=== PATIENT | male | born 1980 | race Caucasian/White ===

== ENCOUNTER 2023-02-18 10:40 | Outpatient (OUT) | payer BC, SELFPAY ==
--- NOTE | 2023-02-18 10:49 | XR_ITS ---
The [address] [address] Patient Name: CARIN SO MRN: [id number] date: 1980 Sex: M Assigned Patient Location: [facility] Current Patient Location: [facility] Accession/Order Number: [id number] Exam Date: 02/18/2023 11:00 Report Date: 02/19/2023 00:12 At the request of: STEWART DAVILA Procedure: XR wrist RT min 3V EXAM: XR wrist RT min 3V HISTORY: Acute pain of right wrist M25.531 history of trauma COMPARISON: None. TECHNIQUE: 3 view study FINDINGS: Overall bony architecture is normal. Joint spaces are well-maintained. Soft tissue swelling is noted about the wrist. IMPRESSION: Soft tissue swelling. No acute bone or joint abnormality is otherwise. Electronically authenticated by: Soto ALANIZ Date: 02/19/2023 00:12
== END 2023-02-18 10:41 ==
LOC: RAD 10:43
PROVIDERS: PCP Internal Medicine; Visit Provider Internal Medicine
DX: M25.531 Pain in right wrist (principal)
CPT/HCPCS: 73110

== ENCOUNTER 2024-03-04 06:00 | Emergency (ER) | payer OTHER, BC, SELFPAY ==
[2024-03-04 06:05] VITALS: BP 138/95; PULSE 94; TEMP 36.8; O2SAT 97; BMI 39.7
--- NOTE | 2024-03-04 06:16 | XR_ITS ---
The [address] [address] Patient Name: CARIN SO MRN: [id number] date: 1980 Sex: M Assigned Patient Location: ER Current Patient Location: ER Accession/Order Number: [id number] Exam Date: 03/04/2024 06:32 Report Date: 03/04/2024 06:56 At the request of: LIAM MARKER Procedure: XR wrist RT 2V PROCEDURE: XR wrist RT 2V HISTORY: fall, wrist pain COMPARISON: XR wrist right 02/18/2023 FINDINGS: BONES:No fracture, acute abnormality, or significant arthropathy. SOFT TISSUES:No visible soft tissue swelling. EFFUSION:None visible. OTHER: Negative. XR/XR wrist RT 2V IMPRESSION: 1. No acute bone abnormality or significant degenerative joint disease. Electronically authenticated by: TAYLOR KIM Date: 03/04/2024 06:56
--- NOTE | 2024-03-04 06:16 | XR_ITS ---
The [address] [address] Patient Name: CARIN SO MRN: [id number] date: 1980 Sex: M Assigned Patient Location: ER Current Patient Location: ER Accession/Order Number: [id number] Exam Date: 03/04/2024 06:32 Report Date: 03/04/2024 06:54 At the request of: LIAM MARKER Procedure: XR knee RT 3V PROCEDURE: XR knee RT 3V HISTORY: fall, knee pain COMPARISON: None. FINDINGS: BONES:No fracture, acute abnormality, or significant arthropathy. SOFT TISSUES:No visible soft tissue swelling. EFFUSION:None visible. OTHER: Negative. XR/XR knee RT 3V IMPRESSION: 1. No acute bone abnormality or significant degenerative joint disease. Electronically authenticated by: TAYLOR KIM Date: 03/04/2024 06:54
--- NOTE | 2024-03-04 06:16 | XR_ITS ---
The [address] [address] Patient Name: CARIN SO MRN: [id number] date: 1980 Sex: M Assigned Patient Location: ER Current Patient Location: ED.MAIN Accession/Order Number: [id number] Exam Date: 03/04/2024 06:32 Report Date: 03/04/2024 06:53 At the request of: LIAM MARKER Procedure: XR shoulder RT min 2V PROCEDURE: XR shoulder RT min 2V HISTORY: fall, shoulder pain COMPARISON: None. FINDINGS: BONES:Degenerative osteophytes adjacent the acromioclavicular joint. Unremarkable glenohumeral joint. No fracture or dislocation. SOFT TISSUES:No visible soft tissue swelling. EFFUSION:None visible. OTHER: Negative. XR/XR shoulder RT min 2V IMPRESSION: 1. No acute bone abnormality. 2. Mild degenerative changes. Electronically authenticated by: TAYLOR KIM Date: 03/04/2024 06:53
--- NOTE | 2024-03-04 06:18 | ED_ITS ---
HPI HPI - Extremity Injury (Upper) General Chief Complaint: Extremity Injury, Upper Stated Complaint: FALL RT ARM/SHOULDER INJURY/BWC Time Seen by Provider: 03/04/24 06:07 Source: patient Mode of arrival: walk-in History of Present Illness HPI narrative: This 43-year-old male who is right-hand dominant presents for evaluation of right wrist, shoulder and knee pain. The patient states he was at the yard at work and tripped and fell on the right side of his body. He put his right hand down to break his fall and thinks that he jammed his shoulder. He also fell onto the right knee. He has some abrasions to the right knee but no bony tenderness. He denies striking his head. He has no neck or back pain. He does not know the date of his last tetanus shot. He denies that he became dizzy or syncopal prior to the fall. The injury occurred approximately 6 hours prior to arrival. He took some Tylenol and put a Band-Aid on his right knee prior to coming to the emergency department. At the time he is being seen he declines need for any pain medication. Related Data Allergies Allergy/AdvReac Type Severity Reaction Status Date / Time No Known Drug Allergies Allergy Verified 03/04/24 06:10 Opioid HPI Opioid Management Most Recent Pain and Opioid Data: No Data to Display Review of Systems ROS Status of ROS 10 or more systems reviewed and unremark able except as noted in history and below Exam Narrative Exam Narrative: Vital signs and Nursing Notes reviewed: Patient is afebrile with a normal pulse, blood pressure is mildly elevated at 138/95, he is not hypoxic with pulse ox of 97% on room air General: Awake, alert, oriented, overweight male resting comfortably on the stretcher, GCS 15, no respiratory distress HEENT: Normocephalic atraumatic, mucous membranes are moist and pink, eyes are clear, normal conjunctiva, vision is grossly intact Neck: Supple, no midline bony vertebral tenderness or step-off Chest: Lungs are clear to auscultation with good air entry, there is no wheezing rhonchi or rales appreciated no accessory muscle use, patient is speaking in complete sentences-no chest wall tenderness to palpation CVS: Regular rate and rhythm S1-S2, no murmurs rubs or gallops, pulses are brisk and equal bilaterally ABD: Soft, nondistended, nontender, no rebound guarding or rigidity, bowel sounds are normal, no pulsatile masses appreciated Extremities: There is mild tenderness to the right anterior shoulder with no bony deformity or abrasion noted. There is mild tenderness to the distal radius with no bony deformity ecchymosis or notable abnormality. [facility] strength is intact. Sensation is intact. Patient is able to cross the right hand to the left shoulder indicating he does not have a dislocation. Fingers are warm and sensate. Capillary refill is normal. Patient has mild tenderness over the patella where there are several superficial abrasions. Full range of motion is appreciated. Skin: Normal in appearance without rash,pallor, petechiae or purpura Neuro: No focal deficits Constitutional Vital Signs, click to edit/add: Last Vital Signs Temp 98.2 F 03/04/24 06:05 Pulse 94 H 03/04/24 06:05 Resp 16 03/04/24 06:05 BP 138/95 H 03/04/24 06:05 Pulse Ox 97 03/04/24 06:05 O2 Del Method Room Air 03/04/24 06:05 Course Vital Signs Vital signs: Vital Signs Temperature 98.2 F 03/04/24 06:05 Pulse Rate 94 H 03/04/24 06:05 Respiratory Rate 16 03/04/24 06:05 Blood Pressure 138/95 H 03/04/24 06:05 Pulse Oximetry 97 03/04/24 06:05 Oxygen Delivery Method Room Air 03/04/24 06:05 Temperature 98.2 F 03/04/24 06:05 Pulse Rate 94 H 03/04/24 06:05 Respiratory Rate 16 03/04/24 06:05 Blood Pressure 138/95 H 03/04/24 06:05 Pulse Oximetry 97 03/04/24 06:05 Oxygen Delivery Method Room Air 03/04/24 06:05 MDM - Extremity Injury (Upper) MDM Narrative Medical decision making narrative: This 43-year-old male presents for evaluation of a right shoulder, wrist and knee injury after falling in the yard at his job. The fall occurred approximately 6 hours prior to arrival. He describes it as a mechanical fall and denies any syncope or dizziness. He has no chest pain or shortness of breath. He has full range of motion of the shoulder with no bony deformity. There is mild tenderness at the distal radius. There is no snuffbox tenderness. [facility] strength is intact. He has mild abrasions over the right knee with some mild bony tenderness. He declined the need for any pain medication in the emergency department because he had taken Tylenol earlier in the evening. Tetanus was updated. X-ray of the right shoulder, right wrist and right knee was ordered. Discharge Plan Discharge Chief Complaint: Extremity Injury, Upper Clinical Impression: Fall from standing, Right shoulder strain, Sprain and strain of right wrist, Contusion of knee, right Print Language: Ukrainian Instructions: Sprain (ED), Contusion in Adults (ED), Wrist Sprain (ED), Cold Compress or Soak (ED) Referrals: STEWART DAVILA [Primary Care Provider] - 1 week
[2024-03-04] MEDS: ADACEL DIPH,PERTUSS(ACELL),TET VAC/PF 0.5 ML ADULT SYRINGE IM (06:47)
== END 2024-03-04 07:02 | disposition home or self-care (01) ==
PROVIDERS: Emergency Provider Emergency Medicine; PCP Internal Medicine
DX: S46.911A Strain of unspecified muscle, fascia and tendon at shoulder and upper arm level, right arm, initial encounter (principal); S63.501A Unspecified sprain of right wrist, initial encounter; S66.911A Strain of unspecified muscle, fascia and tendon at wrist and hand level, right hand, initial encounter; S80.01XA Contusion of right knee, initial encounter; W01.10XA Fall on same level from slipping, tripping and stumbling with subsequent striking against unspecified object, initial encounter; Z23 Encounter for immunization
CPT/HCPCS: 73030; 73100; 73562; 90471; 90715; 99284

== ENCOUNTER 2025-06-28 18:20 | Emergency (ER) | payer BC, SELFPAY ==
[2025-06-28 18:27] VITALS: BP 149/87; PULSE 76; TEMP 37.2; O2SAT 96; BMI 41.8
--- OUTSIDE RECORDS SUMMARY | 2025-06-28 18:28 | XMS_ITS | Encounter Summary ---
Author Organization [facility] Address [address] [place] [address] Care Team Providers Care Lip Cutter Name Role Phone Marty Mason MD Primary Care Provider [phone] Encounter Details DateTypeDepartmentCare Team (Latest Contact Info)Gyaagpbahqb08/27/2025Telephone [facility] [address] [place] [address] Kirsten Lance LPN [address] [place], [place] [id number] Social History Tobacco UseTypesPacks/DayYears UsedDateSmoking Tobacco: FormerCigarettesQuit: 09/02/2015Smokeless Tobacco: Never Comments:Last smoked : > 5-1 0 years Alcohol UseStandard Drinks/WeekCommentsYes2 (1 standard drink = 0.6 oz pure alcohol)Caffeine intake : teaPHQ-2AnswerDate RecordedPatient Health Questionnaire-2 Seydm843Sex and Gender InformationValueDate RecordedSex Assigned at BirthNot on fileLegal EgnMkje2311/14/2022 7:05 PM EDTGender Identity Not on fileSexual OrientationNot on filedocumented as of this encounter Miscellaneous Notes * Telephone Encounter - Kirsten Lance LPN - 06/28/2025 4:48 PM EDT Pt LM on stating he thinks he may have a kidney stone and was wanting any advice. Called pt backand advised we start by checking urine and if it is a stone there is usually blood in the urine andwe could order an ultrasound to see if there is a kidney stone, how big, where it is. Pt thinks he is just going to go to ER d/t the amount of pain he is in and that way they can just do all that at one time. documented in this encounter Plan of Treatment Not on file documented as of this encounter Visit Diagnoses Not on filedocumented in this encounter Care Teams Team MemberRelationshipSpecialtyStart DateEnd Date Marty Mason MD [address] [facility] [address] [place] [address] PCP - GeneralInternal Medicine01/14/23documented as of this encounter
--- OUTSIDE RECORDS SUMMARY | 2025-06-28 18:28 | XMS_ITS | Clinical Summary ---
Author Organization [facility] Address [address] [place] [address], [address] [place] [address] Care Team Providers Care Business Process Lead Name Role Phone Marty Mason MD Primary Care Provider [phone] Allergies No known active allergies Medications No known medications Family History RelationNameStatusCommentsFatherAliveMotherAlive Social History Tobacco UseTypesPacks/DayYears UsedDateSmoking Tobacco: FormerCigarettes0.310 Smokeless Tobacco: Never Tobacco Cessation:Counseling Given: Yes Alcohol UseStandard Drinks/WeekCommentsNever0 (1 standard drink = 0.6 oz pure alcohol)AUDIT-CAnswerDate RecordedFrequency of Alcohol ConsumptionNever 02/20/2019Average Number of DrinksNot on file02/20/2019Frequency of Binge DrinkingNot on file02/20/2019Sex and Gender InformationValueDate RecordedSex Assigned at BirthNot on fileLegal YliVdbj0111/17/2018 1:58 PM EDTGender Identity Not on fileSexual OrientationNot on file Last Filed Vital Signs Vital SignReadingTime TakenCommentsBlood Ixuccnwo093/7906 8:18 AM EDT Czgab6797 8:18 AM EDTTemperature--Respiratory Rate--Oxygen Saturation-- Inhaled Oxygen Concentration--Krumty349.7 kg (264 lb)02/20/2019 8:18 AM EDT Oichvk495.3 cm (5' 11 )02/20/2019 8:18 AM EDTBody Mass Index36.8206 8:18 AM EDT Plan of Treatment Not on file [place] [address] Care Teams Team MemberRelationshipSpecialtyStart DateEnd Date Marty Mason MD [address] [facility] [address] [place] [address] PCP - GeneralInternal Medicine02/20/19
--- OUTSIDE RECORDS SUMMARY | 2025-06-28 18:28 | XMS_ITS | Clinical Summary ---
Author Organization [facility] Address [id number] [address] [place] [address] Care Team Providers Care Breaker Boss Name Role Phone Marty Mason MD Primary Care Provider [phone] Allergies No known active allergies Medications MedicationSigDispense QuantityRefillsLast FilledStart DateEnd DateStatus famotidine (PEPCID) 20 mg tablet Take 1 tablet (20 mg total) by mouth in the morning and 1 tablet (20 mg total) before bedtime. 20 tablet 01/16/2024ctive ondansetron ODT (ZOFRAN ODT) 4 mg disintegrating tablet Dissolve 1 tablet (4 mg total) on tongue every 8 (eight) hours as needed for nausea for up to 10 doses. 10 tablet 01/16/2024ctive Active Problems ProblemNoted DateDiagnosed DateLumbar disc herniation with radiculopathy 11/03/2020pondylolisthesis at L5-S1 level11/03/2020hronic bilateral low back pain with right-sided axmplfny68/04/2021 Resolved Problems ProblemNoted DateDiagnosed DateResolved DateScrotal wall wkzcndf9302/09/2019 11/03/2020 Immunizations No known immunizations Family History Medical HistoryRelationNameCommentsDiabetesFatherHypertensionFatherCancer Maternal GrandfatherDiabetesMotherCancerPaternal GrandfatherRelationNameStatus CommentsFatherMaternal GrandfatherMotherPaternal Grandfather Social History Tobacco UseTypesPacks/DayYears UsedDateSmoking Tobacco: FormerCigarettesQuit: 2015Smokeless Tobacco: NeverAlcohol UseStandard Drinks/WeekCommentsYes0 (1 standard drink = 0.6 oz pure alcohol)rareAUDIT-CAnswerDate RecordedFrequency of Alcohol JswyvoyhbzlNeqjy86/05/2021verage Number of DrinksNot on file10/07/2020 Frequency of Binge DrinkingNot on file10/07/2020hildcareAnswerDate Recorded VlupsuazxKpjmgxr51/10/2019EmploymentAnswerDate RecordedEmploymentUnknown 02/09/2019Hunger ScreeningAnswerDate RecordedWithin the past 12 months we worried whether our food would run out before we got money to buy more.Never True01/16/2024Within the past 12 months the food we bought just didn't last and we didn't have money to get more.Never True4Purpose - LifeAnswerDate RecordedPurpose and direction in falrDptcimf92/04/2021ex and Gender Information ValueDate RecordedSex Assigned at BirthNot on fileLegal RkmPieh1804/07/2015 12:09 PM EDTGender IdentityNot on fileSexual OrientationNot on file Last Filed Vital Signs Vital SignReadingTime TakenCommentsBlood Uwisvrek722/69001/16/2024 5:00 PM EDT Bozvz9503/16/2024 4:45 PM KEWImmmtqqwxho95.5 ??C (99.5 ??F)01/16/2024 1:47 PM EDTRespiratory Xtgb953301/16/2024 4:45 PM EDTOxygen Msunhlgswp14%01/16/2024 5:00 PM EDTInhaled Oxygen Concentration--Otlnrl265.1 kg (300 lb)01/16/2024 1:47 PM MROJgnbkm322.3 cm (5' 11 )01/16/2024 1:47 PM EDTBody Mass Index41.8401/16/2024 1:47 PM EDT Plan of Treatment Health MaintenanceDue DateLast DoneCommentsDepression Gguyszyzf00/20/1995 DTaP,Tdap and Td Vaccines (1 - Tdap)2001Adult BMI Bxhfbhycp49/16/2025 01/16/2024Tobacco Wnfgqotem52Influenza Alphdur9405/03/2025 Goals GoalPatient Goal TypeAssociated ProblemsRecent ProgressPatient-Stated?Author Home Carola Meier LSW Note: Evaluation of progress towards goal: Safe dc transition from hospital to home with family support. Medical Devices ImplantedTypeAreaManufacturerDevice IdentifierShelf Expiration DateModel / Serial / LotCg Spnl [id number] [place] 6d - [id number] - [id number] Implanted:Qty: 1 on 11/02/2020 by Garrett Michaels, DO at [facility]/A: BackSTRYKER [id number] / [id number] / [id number]:10 x 32 x 10 mm 6 degree [id number] Bn Dmnr Fbr 15ml Biologic - [id number] - [id number] Implanted:Qty: 1 on 11/02/2020 by Garrett Michaels DO at [facility]/A: BackSTRYSEKOU [id number] / [id number] / NARod Spnl 40mm 5.5mm Cntr y - [id number] - [id number] Implanted:Qty: 1 on 11/02/2020 by Garrett Michaels, DO at [facility]/A: BackSTRYKER [id number] / [id number] / Juliano Spnl 45mm 5.5mm Cntr y - [id number] - [id number] Implanted:Qty: 1 on 11/02/2020 by Garrett Michaels DO at [facility]/A: BackSTRYKER [id number] / [id number] / Scr Set Spne Vrst Gry - [id number] - [id number] Implanted:Qty: 4 on 11/02/2020 by Garrett Michaels DO at [facility]/A: BackSTRYKER [id number] / [id number] / Scr Bn 55mm 6.5mm Pa Spne Vrst - [id number] - [id number] Implanted:Qty: 1 on 11/02/2020 by Garrett Michaels DO at [facility]/A: BackSTRYKER [id number] / [id number] / Scr Bn 40mm 6.5mm Pa Spne Vrst - [id number] - [id number] Implanted:Qty: 1 on 11/02/2020 by Garrett Michaels DO at [facility]/A: BackSTRYKER [id number] / [id number] / Scr Bn 45mm 6.5mm Pa Spne Vrst - [id number] - [id number] Implanted:Qty: 1 on 11/02/2020 by Garrett Michaels DO at [facility]/A: BackSTRYKER [id number] / [id number] / Scr Bn 45mm 7.5mm Pa Spne Vrst - [id number] - [id number] Implanted:Qty: 1 on 11/02/2020 by Garrett Michaels DO at [facility]/A: BackSTRYKER [id number] / [id number] / Insurance Advance Directives * Full Code (Latest Code Status on File) Date ActivatedDate InactivatedComments11/02/2020 4:37 PM11/05/2020 4:48 PM * Full Code Date ActivatedDate InactivatedComments02/09/2019 5:23 AM02/11/2019 8:29 PM Care Teams Team MemberRelationshipSpecialtyStart DateEnd Date Marty Mason MD [address] [facility] [address] [place] [id number] PCP - GeneralInternal Medicine02/09/19
--- OUTSIDE RECORDS SUMMARY | 2025-06-28 18:28 | XMS_ITS | Clinical Summary ---
Author Organization [facility] Healthcare Address [address] [place] [address] Care Team Providers Care Spine Specialist Name Role Phone Marty Mason MD Primary Care Provider [phone] Allergies No known active allergies Medications MedicationSigDispense QuantityRefillsLast FilledStart DateEnd DateStatus loratadine-pseudoephedrine ER (Claritin-D 24-hour) 10-240 MG 24 hr tablet Take 1 tablet by mouth Daily Do not crush, chew, or split.Active atorvastatin (Lipitor) 10 MG tablet Indications:Mixed hyperlipidemiaTake 1 tablet (10 mg) by mouth Daily 90 tablet 5Active Azelastine HCl 137 MCG/SPRAY solution Indications:Non-seasonal allergic rhinitis due to other allergic trigger Administer 1 spray into affected nostril(s) in the morning and 1 spray before bedtime. 30 mL 5Active fluticasone (Flonase) 50 MCG/ACT nasal spray Indications:Non-seasonal allergic rhinitis due to other allergic trigger Administer 1-2 sprays into each nostril Daily Shake gently. Before first use, prime pump. After use, clean tip and replace cap. 16 g 5Active Semaglutide,0.25 or 0.5MG/DOS, (Ozempic, 0.25 or 0.5 MG/DOSE,) 2 MG/3ML solution pen-injector Indications:Type 2 diabetes mellitus with other specified complication, without long-term current use of insulin (HCC)Inject 0.5 mg under the skin 1 (one) time per week 3 mL 5Active Active Problems ProblemNoted DateDiagnosed DateNon-seasonal allergic ypldxnmj30/15/2025 Xiytzoqmlmjrcvop20/06/2025Type 2 diabetes mellitus with other specified volagtxlgqlz84/06/2025Mixed jlyttslzfjcwmf41/06/2025Total bilirubin, elevated 02/05/2025Morbid dsbjply0912/28/2024MI 40.0-44.9, adult12/28/2024Former smoker 07/16/2023Lumbosacral radiculopathy at L501/10/2023Spondylolisthesis at L5-S1 level01/10/2023Obstructive sleep apnea fhlvjpfa47/11/2023Traumatic arthritis of right hip01/10/2023ost laminectomy qoyzjlgo48/11/2021hronic bilateral low back pain with right-sided tnuicyzv08/04/2021umbar disc herniation with vtbtivujirsvj40/04/2021 Resolved Problems ProblemNoted DateDiagnosed DateResolved DateElevated LDL cholesterol level /omplication of surgical etzkryyjf32 Neuralgia of right flankObesity (BMI 30-39.9)01/10/2023 12/28/20246246Hfbwywwtyfx22/11/202306/01/2025Unspecified mononeuropathy of right lower limbXanthoma of eomczq57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 Encounters DateTypeDepartmentCare NcmaMqabpgfnzod43/27/2025Telephone [facility] [address] [place] [address] Kirsten Lance LPN 06/07/2025bstract [facility] [address] [place] [address] Marty Mason MD 05/25/2025bstract [facility] [address] [place] [address] Marty Mason MD 05/20/2025bstract [facility] [address] [place] [address] Marty Mason MD 05/18/2025Telephone [facility] [address] [facility] [address] [place] [address] Kirsten Lance LPN 05/18/2025Results Follow-Up [facility] [address] [place] [address] Kavya Mesa PA CBC, Iron + transferrin + TIBC05/17/2025 9:30 AM EDTOffice Visit [facility] [address] [facility] [address] [place] [address] Kavya Mesa PA Type 2 diabetes mellitus with other specified complication, without long-term current use of insulin ([facility]) (Primary Dx); Non-seasonal allergic rhinitis due to other allergic trigger; Thrombocytopenia; Morbid obesity ([facility] BMI 40.0-44.9, adult ([facility]); Mixed nmwvhkgzssycxw02/15/2025bstract [facility] [address] [facility] [address] [place] [address] Marty Mason MD 05/17/2025amboo flowsheet [facility] [address] [place] [address] Kavya Mesa PA 05/17/2025Travelfrom Last 3 Months Family History Medical HistoryRelationNameCommentsDiabetesFatherHypertensionFatherHypertension MotherRelationNameStatusCommentsFatherAliveMotherAlive Social History Tobacco UseTypesPacks/DayYears UsedDateSmoking Tobacco: FormerCigarettesQuit: 09/02/2015Smokeless Tobacco: Never Tobacco Cessation:Counseling Given: Not Answered Comments:Last smoked : > 5-10 years Alcohol UseStandard Drinks/WeekCommentsYes2 (1 standard drink = 0.6 oz pure alcohol)Caffeine intake : teaPHQ-2AnswerDate RecordedPatient Health Questionnaire-2 Pssep004Sex and Gender InformationValueDate RecordedSex Assigned at BirthNot on fileLegal OiwThpj6411/14/2022 7:05 PM EDTGender Identity Not on fileSexual OrientationNot on file Last Filed Vital Signs Vital SignReadingTime TakenCommentsBlood Hzqjkipm172/7009 9:38 AM EDT Bieuz0659 9:38 AM WLBJmatbsztswe79.2 ??C (99 ??F)12/28/2024 10:37 AM EDT Respiratory Pdks534505/17/2025 9:38 AM EDTOxygen Gccdomykte16%05/17/2025 9:38 AM EDTInhaled Oxygen Concentration--Jqezuz121 kg (302 lb 12.8 oz)05/17/2025 9:38 AM UONSryheh724.3 cm (5' 11 )05/17/2025 9:38 AM EDTBody Mass Index42.23005/17/2025 9:38 AM EDT Plan of Treatment Health MaintenanceDue DateLast DoneCommentsMMR Vaccines (1 of 1 - Standard series)1983DTaP/Tdap/Td Vaccines (1 - Tdap)1989Diabetes: Retinopathy Xamhzphys59/20/1993Varicella Vaccines (1 of 2 - 13+ 2-dose series)1995 Hepatitis B Vaccines (1 of 3 - 19+ 3-dose series)2001Pneumococcal Vaccine: Pediatrics (0 to 5 Years) and At-Risk Patients (6 to 64 Years) (1 of 2 - PCV) 2001HPV Vaccines (1 - 3-dose SCDM series)2009COVID-19 Vaccine ( - season)2025Diabetes: Hemoglobin A1C5005/17/2025, 01/29/2025, 02/25/2023, Additional history existsDiabetes: Urine Protein Ojrsaokom77HIB VaccinesAged OutNo longer eligible based on patient's age to complete this topicHepatitis A VaccinesAged OutNo longer eligible based on patient's age to complete this topicIPV VaccinesAged OutNo longer eligible based on patient's age to complete this topicInfluenza Vaccine DiscontinuedMeningococcal B VaccineAged OutNo longer eligible based on patient's age to complete this topicMeningococcal VaccineAged OutNo longer eligible based on patient's age to complete this topicRotavirus VaccinesAged OutNo longer eligible based on patient's age to complete this topic Procedures Procedure NamePriorityDate/TimeAssociated DiagnosisCommentsIRON + TRANSFERRIN + FTPDZyfcmyo80/15/2025 9:58 AM EDT Thrombocytopenia NQNOujiohx91/15/2025 9:58 AM EDT Thrombocytopenia POCT GLYCATED HEMOGLOBIN, KONKYJkamvgv59/15/2025 9:42 AM EDT Type 2 diabetes mellitus with other specified complication, without long-term current use of insulin (HCC) MICROALBUMIN / CREATININE URINE UHLHPDpghpjn31/12/2025 2:06 PM EDT Type 2 diabetes mellitus with other specified complication, without long-term current use of insulin (HCC) from Last 3 Months or Most Recently Relevant to Health Maintenance Results * (ABNORMAL) Iron + transferrin + TIBC (05/17/2025 9:58 AM EDT)ComponentValueRef RangeTest MethodAnalysis TimePerformed AtPathologist SignatureIRON, KDQYT3854 - 180 mcg/dLQUESTIRON BINDING RDMRKOQU214975 - 425 mcg/dL (calc)QUEST% XIQKCZAWIK30(L)20 - 48 % (calc)ZERRGJOKHOGOP67604 - 380 ng/mLQUESTSpecimen (Source)Anatomical Location / LateralityCollection Method / VolumeCollection TimeReceived EfgdEgbte87/15/2025 9:58 AM EDT05/17/2025 9:59 AM EDT Narrative Resulting Agency Comment Performing Organization Information ?Site ID: QPT ?Name: [facility] ?Address: [address] [place] [address], [address] [place] [id number] ?Director: Philip Simpson MD Authorizing ProviderResult TypeResult StatusKavya Mesa PAL BLOOD ORDERABLESFinal ResultPerforming OrganizationAddressCity/State/ZIP CodePhone Number [facility]ST * (ABNORMAL) CBC (05/17/2025 9:58 AM EDT)ComponentValueRef RangeTest Method Analysis TimePerformed AtPathologist SignatureWHITE BLOOD CELL COUNT4.53.8 - 10.8 Thousand/uLQUESTRED BLOOD CELL COUNT4.734.20 - 5.80 Million/uLQUEST CQBLGZEDIX21.013.2 - 17.1 g/oDYHGXZZDFXYZVVVU21.038.5 - 50.0 %GPCLDVIU670.6(H) 80.0 - 100.0 aNDUOBCMAU66.8(H)27.0 - 33.0 luJAFVMKZIS22.732.0 - 36.0 g/dLQUEST Comment: For adults, a slight decrease in the calculated MCHC value (in the range of 30 to 32 g/dL) is most likely not clinically significant; however, it should be interpreted with caution in correlation with other red cell parameters and the patient's clinical condition. RDW13.411.0 - 15.0 %QUESTPLATELET QTWXO771(L)140 - 400 Thousand/yLMVMWEJGR38.2 7.5 - 12.5 fLQUESTSpecimen (Source)Anatomical Location / LateralityCollection Method / VolumeCollection TimeReceived TimeBloodVenous blood specimen / Unknown 05/17/2025 9:58 AM EDT05/17/2025 9:59 AM EDT Narrative Resulting Agency Comment Performing Organization Information ?Site ID: QPT ?Name: [facility] ?Address: [address] [place] [phone] ?Director: Philip Simpson MD Authorizing ProviderResult TypeResult StatusKavya Mesa PALAB BLOOD ORDERABLESFinal ResultPerforming OrganizationAddressCity/State/ZIP CodePhone Number [facility] * (ABNORMAL) POCT Glycated hemoglobin, total (05/17/2025 9:42 AM EDT)Component ValueRef RangeTest MethodAnalysis TimePerformed AtPathologist Signature Hemoglobin A1C6.0Specimen (Source)Anatomical Location / LateralityCollection Method / VolumeCollection TimeReceived TxymLywzj42/15/2025 9:42 AM EDT Narrative Authorizing ProviderResult TypeResult StatusKavya Mesa [facility]/EDIT ORDERABLESFinal Result * Microalbumin / creatinine, urine ratio (02/11/2025 2:06 PM EDT)ComponentValue Ref RangeTest MethodAnalysis TimePerformed AtPathologist SignatureCREATININE, RANDOM BCANM32477 - 320 mg/dLQUESTALBUMIN, URINE1.2See Note: mg/dLQUEST Comment: Reference Range: Reference Range Not established ALBUMIN/CREATININE RATIO, RANDOM URINE4<30 mg/g creatQUESTComment: The ADA defines abnormalities in albumin excretion as follows: Albuminuria Category ?Result (mg/g creatinine) Normal to Mildly increased <30 Moderately increased ? 30-299 Severely increased > OR = 300 The ADA recommends that at least two of three specimens collected within a 3-6 month period be abnormal before considering a patient to be within a diagnostic category. Specimen (Source)Anatomical Location / LateralityCollection Method / Volume Collection TimeReceived TimeUrineUrine specimen obtained by clean catch procedure / Bxdbtid0802/11/2025 2:06 PM EDT02/11/2025 2:07 PM EDT Narrative Resulting Agency Comment Performing Organization Information ?Site ID: QPT ?Name: [facility] ?Address: [address] [place] [address], [address] [place] [phone] ?Director: Philip Simpson MD Authorizing ProviderResult TypeResult StatusKavya Mesa PALAB URINE ORDERABLESFinal ResultPerforming OrganizationAddressCity/State/ZIP CodePhone Number [facility]ST from Last 3 Months or Most Recently Relevant to Health Maintenance Insurance Care Teams Team MemberRelationshipSpecialtyStart DateEnd Date Marty Mason MD [address] [address] PCP - GeneralInternal Medicine01/14/23
[2025-06-28 18:45] LABS: Glucose Urine UA NEGATIVE (NEGATIVE)
[2025-06-28 18:54] LABS: Cast Seen? NONE SEEN #/LPF (NONE SEEN); Crystals Seen? None Seen #/HPF (None Seen); Urine Culture Indicated NO
--- NOTE | 2025-06-28 19:19 | CT_ITS ---
The [address] [address] Patient Name: CARIN SO MRN: [id number] date: 1980 Sex: M Assigned Patient Location: ER Current Patient Location: ER Accession/Order Number: [id number] Exam Date: 06/28/2025 19:30 Report Date: 06/28/2025 20:04 At the request of: ELEAZAR MENCHACA DO Procedure: CT abdomen pelvis wo con CT ABDOMEN AND PELVIS WITHOUT INTRAVENOUS CONTRAST: CLINICAL HISTORY: r/o kidney stone COMPARISON: 02/08/2019 TECHNIQUE: Spiral images were obtained through the abdomen and pelvis without intravenous contrast. This CT exam was performed using one or more following dose reduction techniques: Automated exposure control, adjustment of the mA and/or kV according to patient size, or use of iterative reconstruction technique. FINDINGS: Small hiatal hernia. Hypoventilatory changes. Fatty infiltration of the liver. Gallbladder, spleen, adrenals, kidneys, and pancreas are unremarkable. There are punctate bilateral calculi without hydronephrosis or definite ureterolithiasis. There is mild retroperitoneal fat stranding identified along the duodenal sweep. This could raise possibility for duodenitis. Pancreatitis could have a similar appearance. Otherwise no evidence of bowel obstruction. Mild retained stool throughout the colon. Colonic diverticulosis. Appendix is normal. Bladder wall thickening prostate unremarkable. No free air or free fluid. Postsurgical changes lumbosacral junction with discectomy and posterior dislocation identified. CT/CT abdomen pelvis wo con IMPRESSION: Mild haziness along the duodenal sweep noted, this could raise possibility for pancreatitis versus duodenitis. Punctate nephrolithiasis. Negative hydronephrosis or ureterolithiasis.. Impression dictated by: Phoenix Mann M.D. 06/28/2025 8:04 PM Dictation Location: [place] [address] Electronically authenticated by: [id number] Y Date: 06/28/2025 20:04
[2025-06-28 19:29] LABS: Hematocrit 46.3 % (42.0-54.0); Hemoglobin 16.2 g/dL (14.0-18.0); Immature Granulocytes Abs Auto 0.02 10^3/uL (0.00-0.03); Immature Granulocytes Pct Auto 0.3 % (0.0-0.5); Lymphocytes Absolute Auto 2.1 10^3/uL (1.2-3.8); Mean Corpuscular HGB Conc 35.0 g/dL (29.9-35.2); Mean Corpuscular Hemoglobin 34.1 pg (25.9-34.0); Mean Corpuscular Volume 97.5 fL (80.0-94.0); Platelet Count 131 10^3/uL (150-450); Red Blood Count 4.75 10^6/uL (4.70-6.10); White Blood Count 7.9 10^3/uL (4.0-11.0)
[2025-06-28] MEDS: KETOROLAC TROMETHAMINE 30 MG/ML VIAL IVP (19:31)
[2025-06-28] MEDS: 0.9 % SODIUM CHLORIDE 1,000 ML 1000 ML IV (19:32)
[2025-06-28 19:38] LABS: Alanine Aminotransferase 39 U/L (16-63); Albumin Globulin Ratio 0.7; Albumin Level 3.5 g/dL (3.4-5.0); Alkaline Phosphatase 109 U/L (46-116); Anion Gap 12.8; Aspartate Amino Transferase 35 U/L (15-37); Blood Urea Nitrogen 5.0 mg/dL (7.0-18.0); Calcium 8.7 mg/dL (8.5-10.1); Carbon Dioxide 28.8 mmol/L (21.0-32.0); Chloride 98 mmol/L (98-107); Estimated GFR (African America >60 (>=60 mL/min/1.73m^2); Estimated GFR (Non-African Ame >60 (>=60 mL/min/1.73m^2); Globulin 4.8 g/dL; Glucose 118 mg/dL (74-106); Potassium 3.6 mmol/L (3.5-5.1); Sodium 136 mmol/L (136-145); Total Protein 8.3 g/dL (6.4-8.2)
[2025-06-28 19:40] LABS: Lipase 32.0 U/L (16.0-77.0)
[2025-06-28] MEDS: MORPHINE SULFATE 4 MG/ML VIAL IV (19:40)
--- NOTE | 2025-06-28 19:59 | PC.NURSE ---
Pt states the is tolerable at this time.
--- NOTE | 2025-06-29 00:51 | ED_ITS ---
HPI HPI - General Adult General Chief complaint: Urogenital-Male Stated complaint: POSS KIDNEY STONE Time Seen by Provider: 06/28/25 18:35 Source: patient Mode of arrival: walk-in History of Present Illness HPI narrative: Patient is a 44-year-old male presenting to the emergency department for evaluation of abdominal pain. Patient states that he has had 3 days of bilateral lower abdominal pain that radiates to his back. He states he has a history of kidney stones, and is concerned that he may have another 1. He denies any nausea or vomiting. No constipation or diarrhea. No fevers or chills. No chest pain or shortness of breath. No history of recent abdominal surgeries. Related Data Previous Rx's ?Medication ?Instructions ?Recorded omeprazole 20 mg capsule,delayed 20 mg PO DAILY 4 week s #28 caps 06/28/25 release Allergies Allergy/AdvReac Type Severity Reaction Status Date / Time No Known Drug Allergies Allergy Verified 06/28/25 18:26 Opioid HPI Opioid Management Most Recent Opioid Data: Last Pain Scale 8 06/28/25, 19:40 Last MAR Pain Assessment 06/28/25, 19:40 Review of Systems ROS Status of ROS 10 or more systems reviewed and unremark able except as noted in history and below PFSH PFSH Social History Little interest or pleasure in doing things: not at all Feeling down, depressed, or hopeless: not at all Exam Narrative Exam Narrative: CONSTITUTIONAL: Well-appearing, answering questions and following commands appropriately SKIN: Was warm and dry. EYES: Sclerae white. EARS, NOSE, THROAT: Moist oral mucosa. RESPIRATORY: Clear to auscultation bilaterally, no wheezes, crackles, or stridor, no use of accessory muscles CARDIOVASCULAR: Normal rate and regular rhythm. There is no S3, S4, murmur, rub. GASTROINTESTINAL: Abdomen is mildly tender to palpation in the lower abdomen. No rebound tenderness or guarding. MUSCULOSKELETAL: No peripheral edema. NEUROLOGIC: Patient is awake and alert. Facies were symmetrical. Constitutional Vital Signs, click to edit/add: Last Vital Signs Temp 99.0 F 06/28/25 18: Pulse 76 06/28/25 18:27 Resp 18 06/28/25 18:27 BP 149/87 H 06/28/25 18:27 Pulse Ox 96 06/28/25 18:27 O2 Del Method Room Air 06/28/25 18:27 Course Vital Signs Vital signs: Vital Signs Temperature 99.0 F 06/28/25 18: Pulse Rate 76 06/28/25 18: Respiratory Rate 18 06/28/25 18: Blood Pressure 149/87 H 06/28/25 18:27 Pulse Oximetry 96 06/28/25 18:27 Oxygen Delivery Method Room Air 06/28/25 18:27 Temperature 99.0 F 06/28/25 18: Pulse Rate 76 06/28/25 18: Respiratory Rate 18 06/28/25 18: Blood Pressure 149/87 H 06/28/25 18: Pulse Oximetry 96 06/28/25 18: Oxygen Delivery Method Room Air 06/28/25 18:27 Medical Decision Making MDM Narrative Medical decision making narrative: Patient is a 44-year-old male presenting to the emergency department for 3-day history of lower abdominal pain. Vital signs arrival are within normal limits. He is afebrile and hemodynamically stable. Examination as noted above. Differential diagnosis includes nephrolithiasis, diverticulitis, UTI, constipation, or gastritis. Patient's exam is not consistent with surgical etiologies of abdominal pain such as appendicitis, cholecystitis, or perforated viscus. IV was established laboratory studies were obtained. CT abdomen/pelvis was ordered. Issues symptomatic with IV ketorolac and 1 L bolus normal saline. Laboratory studies were unremarkable. No significant electrolyte or metabolic derangement. No evidence of acute kidney injury. No anemia, leukocytosis, or thrombocytopenia. No transaminitis or hyperbilirubinemia. Lipase nonelevated. Urinalysis was positive for microscopic hematuria without evidence of acute infection. CT abdomen/pelvis independently reviewed and interpreted by myself and radiology demonstrated mild haziness along duodenal sweep, could raise possibility for pancreatitis versus duodenitis. Punctate nephrolithiasis. Negative hydronephrosis or ureterolithiasis. Though the CT read was concerning for possible pancreatitis, he is not vomiting and is tolerating p.o. His lipase at level is not elevated. His presentation is more likely consistent with duodenitis. He was given a prescription for omeprazole and instructed follow-up with his PCP for further care. Return precautions were given including any new or concerning symptoms. Patient understands and agrees to plan. FINAL IMPRESSION: #Acute abdominal pain, possible duodenitis DISPOSITION: Discharged home CONDITION: Good Medical Records Medical records reviewed: Yes I reviewed the patient's medical records Lab Data Lab results reviewed: Yes I reviewed the patient's lab results Labs: Lab Results 06/28/25 06/28/25 Range/Units 18:35 19:18 WBC 7.9 (4.0-11.0) 10^3/uL RBC 4.75 (4.70-6.10) 10^6/uL Hgb 16.2 (14.0-18.0) g/dL Hct 46.3 (42.0-54.0) % MCV 97.5 H (80.0-94.0) fL MCH 34.1 H (25.9-34.0) pg MCHC 35.0 (29.9-35.2) g/dL RDW 12.7 (11.0-15.0) % Plt Count 131 L (150-450) 10^3/uL MPV 10.5 (9.5-13.5) fL Neut % (Auto) 57.9 (43.0-75.0) % Lymph % (Auto) 27.1 (20.5-60.0) % Caroline % (Auto) 12.7 H (1.7-12.0) % Eos % (Auto) 1.5 (0.9-7.0) % Baso % (Auto) 0.5 (0.2-2.0) % Neut # (Auto) 4.6 (1.4-6.5) 10^3/uL Lymph # (Auto) 2.1 (1.2-3.8) 10^3/uL Caroline # (Auto) 1.0 H (0.3-0.8) 10^3/uL Eos # (Auto) 0.1 (0.0-0.7) 10^3/uL Baso # (Auto) 0.0 (0.0-0.1) 10^3/uL Abs Immat Gran (auto) 0.02 (0.00-0.03) 10^3/uL Imm/Tot Granulo (auto) 0.3 (0.0-0.5) % Sodium 136 (136-145) mmol/L Potassium 3.6 (3.5-5.1) mmol/L Chloride 98 (98-107) mmol/L Carbon Dioxide 28.8 (21.0-32.0) mmol/L Anion Gap 12.8 BUN 5.0 L (7.0-18.0) mg/dL Creatinine 0.79 (0.70-1.30) mg/dL Est GFR ( Amer) >60 (>=60 mL/min/1.73m^2) Est GFR (Non-Af Amer) >60 (>=60 mL/min/1.73m^2) BUN/Creatinine Ratio 6.3 Glucose 118 H (74-106) mg/dL Calcium 8.7 (8.5-10.1) mg/dL Total Bilirubin 1.4 H (0.2-1.0) mg/dL AST 35 (15-37) U/L ALT 39 (16-63) U/L Alkaline Phosphatase 109 (46-116) U/L Total Protein 8.3 H (6.4-8.2) g/dL Albumin 3.5 (3.4-5.0) g/dL Globulin 4.8 g/dL Albumin/Globulin Ratio 0.7 Lipase 32.0 (16.0-77.0) U/L Urine Color Yellow (YELLOW) Urine Clarity Clear (CLEAR) Urine pH 7.0 (5.0-9.0) Ur Specific [place] 1.015 (1.005-1.025) Urine Protein Negative (NEG/TRACE) mg/dL Urine Glucose (UA) Negative (NEGATIVE) mg/dL Urine Ketones Negative (NEGATIVE) mg/dL Urine Occult Blood Small A (NEGATIVE) Urine Nitrite Negative (NEGATIVE) Urine Bilirubin Negative (NEGATIVE) Urine Urobilinogen 2.0 A (0.2-1.0) EU/dL Ur Leukocyte Esterase Negative (NEGATIVE) Urine RBC 2-5 A (0-2) #/HPF Urine WBC 0-2 A (NONE SEEN) #/HPF Ur Squamous Epith Cells Rare (NONE/RARE) #/LPF Urine Crystals None seen (None Seen) #/HPF Urine Bacteria None seen (NONE SEEN) #/HPF Urine Casts None seen (NONE SEEN) #/LPF Urine Mucus None seen (NONE SEEN) Ur Culture Indicated? No Imaging Data CT scan - abdomen: Attestation: I personally reviewed and interpreted this imaging study as follows: Radiologist's impression: ITS Impressions Abdomen/Pelvis CT 06/28/25 19:19 IMPRESSION: Mild haziness along the duodenal sweep noted, this could raise possibility for pancreatitis versus duodenitis. Punctate nephrolithiasis. Negative hydronephrosis or ureterolithiasis.. Impression dictated by: Phoenix Mann M.D. 06/28/2025 8:04 PM Dictation Location: [facility] Electronically authenticated by: [id number] Y Date: 06/28/2025 20:04 Discharge Plan Discharge Chief Complaint: Urogenital-Male Clinical Impression: Abdominal pain Patient Disposition: Home, Self-Care Time of Disposition Decision: 20:14 Condition: Good Mode of Transportation: Private Vehicle Prescriptions / Home Meds: New omeprazole 20 mg capsule,delayed release(DR/EC) 20 mg PO DAILY 28 Days Qty: 28 0RF Print Language: Luxembourgish Instructions: Abdominal Pain (ED) Referrals: STEWART DAVILA [Primary Care Provider, Internal Medicine] - 1 week Discharge Date/Time: 06/28/25 20:31
== END 2025-06-28 20:31 | disposition home or self-care (01) ==
PROVIDERS: Emergency Medicine; Emergency Provider Student in an Organized Health Care Education/Training Program; PCP Internal Medicine
DX: R10.30 Lower abdominal pain, unspecified (principal); Z87.442 Personal history of urinary calculi
CPT/HCPCS: 36415; 74176; 80053; 81001; 83690; 85025; 96374; 96375; 99284; 99285; J1885; J2270

== ENCOUNTER 2025-07-01 08:45 | Emergency (ER) | payer BC, SELFPAY ==
[2025-07-01 09:02] VITALS: BP 130/70; PULSE 71; TEMP 37.1; O2SAT 94; BMI 41.8
--- NOTE | 2025-07-01 09:08 | ED.ABDPAIN1 ---
HPI - Abdominal Pain General Chief Complaint: Abdominal Pain Stated Complaint: LOWER ABDOMINAL & BACK Time Seen by Provider: 07/01/25 09:03 Source: patient Mode of arrival: walk-in Limitations: no limitations History of Present Illness HPI narrative: cc - abdominal pain Pt was evaluated two days ago for the same complaints, same location. Blood testing and CT did not identify the exact cause - suspicion for duodenitis vs early/mild pancreatitis - he was discharged home with prescription for omeprazole. He now returns with the same complaints. Related Data Previous Rx's ?Medication ?Instructions ?Recorded omeprazole 20 mg capsule,delayed 20 mg PO DAILY 4 weeks #28 caps 06/28/25 release dicyclomine 20 mg tablet 20 mg PO BID PRN abdominal pain 07/01/25 #30 tabs hyoscyamine sulfate 0.125 mg 0.125 mg PO Q6H PRN abdominal pain 07/01/25 sublingual tablet (Levsin/SL) #20 tabs Allergies Allergy/AdvReac Type Severity Reaction Status Date / Time No Known Drug Allergies Allergy Verified 07/01/25 09:01 [facility] PFS Social History Little interest or pleasure in doing things: not at all Feeling down, depressed, or hopeless: not at all Exam Narrative Exam Narrative: Nurses notes and vital signs reviewed and patient is not hypoxic. afebrile General: Well-appearing and in no apparent distress. Skin: Warm, dry, no pallor noted. No rash. Head: Normocephalic, atraumatic. Eye: Pupils are equal, round and EOMI. No scleral icterus. Ears, Nose, Mouth, and Throat: Oral mucosa is lightly dry. Cardiovascular: Regular Rate and Rhythm without murmur, gallop or rub. Respiratory: No accessory muscle use or respiratory distress. Lungs are clear to auscultation, no wheezing, rales or rhonchi Back: No CVA tenderness Musculoskeletal: normal ROM GI: Abdomen is soft, non-distended. Normal bowel sounds. No masses appreciated. Diffuse lower abdominal tenderness to palpation. No rebound, guarding, or rigidity noted. Neurological: A&O x4. No cranial nerve dysfunction observed. No truncal ataxia. Moves all extremities. Sensation intact. Psychiatric: Cooperative and interactive. Normal mood and affect. Constitutional Vital Signs, click to edit/add: Last Vital Signs Temp 98.8 F 07/01/25 09:02 Pulse 71 07/01/25 09:02 Resp 18 07/01/25 09:02 BP 130/70 07/01/25 09:02 Pulse Ox 94 L 07/01/25 09:02 O2 Del Method Room Air 07/01/25 09:02 Course Vital Signs Vital signs: Vital Signs Temperature 98.8 F 07/01/25 09:02 Pulse Rate 71 07/01/25 09:02 Respiratory Rate 18 07/01/25 09:02 Blood Pressure 130/70 07/01/25 09:02 Pulse Oximetry 94 L 07/01/25 09:02 Oxygen Delivery Method Room Air 07/01/25 09:02 Temperature 98.8 F 07/01/25 09:02 Pulse Rate 71 07/01/25 09:02 Respiratory Rate 18 07/01/25 09:02 Blood Pressure 130/70 07/01/25 09:02 Pulse Oximetry 94 L 07/01/25 09:02 Oxygen Delivery Method Room Air 07/01/25 09:02 MDM - Abdominal Pain MDM Narrative Medical decision making narrative: Patient returns for reevaluation of the same symptoms he had in the ED visit 2 days ago. He has been experiencing abdominal pain since June 25. Peripheral IV established blood drawn and sent for testing. Patient was ordered to receive a liter of normal saline IV fluid. The only notable finding on his blood testing was elevated lactate. Additional normal saline IV fluid was ordered to be received. CT of the abdomen pelvis was obtained -this time with IV contrast -in the hopes of better visualizing the etiology of the patient's symptoms. Unfortunately, nothing could be found to account for the patient's lower abdominal pain. The pancreatic changes were once again noted but the patient's lipase is normal. His pain is not localized to the epigastric or upper abdominal areas. I talked to the patient about his results -he declined offer for Dilaudid so we gave him IV ketorolac. He has an appointment with his primary care physician for July 05, 2025. 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 Medical Records Attestation: I reviewed the patient's medical records. Lab Data Attestation: I reviewed the patient's lab results. Labs: Lab Results 07/01/25 07/01/25 Range/Units 09:22 10:11 WBC 5.8 (4.0-11.0) 10^3/uL RBC 4.45 L (4.70-6.10) 10^6/uL Hgb 15.3 (14.0-18.0) g/dL Hct 42.9 (42.0-54.0) % MCV 96.4 H (80.0-94.0) fL MCH 34.4 H (25.9-34.0) pg MCHC 35.7 H (29.9-35.2) g/dL RDW 12.3 (11.0-15.0) % Plt Count 124 L (150-450) 10^3/uL MPV 10.4 (9.5-13.5) fL Neut % (Auto) 64.9 (43.0-75.0) % Lymph % (Auto) 20.3 L (20.5-60.0) % Gladwin % (Auto) 13.0 H (1.7-12.0) % Eos % (Auto) 1.2 (0.9-7.0) % Baso % (Auto) 0.3 (0.2-2.0) % Neut # (Auto) 3.7 (1.4-6.5) 10^3/uL Lymph # (Auto) 1.2 (1.2-3.8) 10^3/uL Gladwin # (Auto) 0.8 (0.3-0.8) 10^3/uL Eos # (Auto) 0.1 (0.0-0.7) 10^3/uL Baso # (Auto) 0.0 (0.0-0.1) 10^3/uL Abs Immat Gran (auto) 0.02 (0.00-0.03) 10^3/uL Imm/Tot Granulo (auto) 0.3 (0.0-0.5) % Sodium 136 (136-145) mmol/L Potassium 3.8 (3.5-5.1) mmol/L Chloride 101 (98-107) mmol/L Carbon Dioxide 25.6 (21.0-32.0) mmol/L Anion Gap 13.2 BUN 5.0 L (7.0-18.0) mg/dL Creatinine 0.85 (0.70-1.30) mg/dL Est GFR ( Amer) >60 (>=60 mL/min/1.73m^2) Est GFR (Non-Af Amer) >60 (>=60 mL/min/1.73m^2) BUN/Creatinine Ratio 5.9 Glucose 175 H (74-106) mg/dL Lactate 2.2 H* (0.4-2.0) mmol/L Calcium 9.0 (8.5-10.1) mg/dL Total Bilirubin 1.4 H (0.2-1.0) mg/dL Direct Bilirubin 0.4 H (0.0-0.2) mg/dL AST 30 (15-37) U/L ALT 35 (16-63) U/L Alkaline Phosphatase 92 (46-116) U/L Total Protein 7.8 (6.4-8.2) g/dL Albumin 3.2 L (3.4-5.0) g/dL Globulin 4.6 g/dL Albumin/Globulin Ratio 0.7 Lipase 30.0 (16.0-77.0) U/L Urine Color Lt. yellow (YELLOW) Urine Clarity Clear (CLEAR) Urine pH 7.0 (5.0-9.0) Ur Specific [place] <=1.005 A (1.005-1.025) Urine Protein Negative (NEG/TRACE) mg/dL Urine Glucose (UA) Negative (NEGATIVE) mg/dL Urine Ketones Negative (NEGATIVE) mg/dL Urine Occult Blood Trace-i (NEGATIVE) Urine Nitrite Negative (NEGATIVE) Urine Bilirubin Negative (NEGATIVE) Urine Urobilinogen 1.0 (0.2-1.0) EU/dL Ur Leukocyte Esterase Negative (NEGATIVE) Urine RBC 0-2 (0-2) #/HPF Urine WBC 0-2 A (NONE SEEN) #/HPF Ur Squamous Epith Cells Rare (NONE/RARE) #/LPF Urine Crystals None seen (None Seen) #/HPF Urine Bacteria Trace A (NONE SEEN) #/HPF Urine Casts None seen (NONE SEEN) #/LPF Urine Mucus None seen (NONE SEEN) Ur Culture Indicated? No Imaging Data CT scan - abdomen: Attestation: I have reviewed the pertinent imaging results. Radiologist's impression: ITS Impressions Abdomen/Pelvis CT 07/01/25 11:47 IMPRESSION: FATTY LIVER. SPLENOMEGALY AND VARICES. CONTINUED INFLAMMATORY CHANGE AROUND THE PROXIMAL PANCREAS AND DUODENAL SWEEP. CORRELATION IS SUGGESTED. LEFT NEPHROLITHIASIS. NO BOWEL OR URINARY TRACT OBSTRUCTION. CONTINUED URINARY BLADDER WALL THICKENING. CORRELATION IS SUGGESTED TO EXCLUDE THE POSSIBILITY OF CYSTITIS. Impression dictated by: Kavya Rodas M.D. 07/01/2025 12:12 PM Dictation Location: [place] [address] Electronically authenticated by: [id number] Y Date: 07/01/2025 12:12 Discharge Plan Discharge Chief Complaint: Abdominal Pain Clinical Impression: Abdominal pain Patient Disposition: Home, Self-Care Time of Disposition Decision: 12:38 Prescriptions / Home Meds: New hyoscyamine sulfate [Levsin/SL] 0.125 mg tablet, sublingual 0.125 mg PO Q6H PRN (Reason: abdominal pain) Qty: 20 0RF dicyclomine 20 mg tablet 20 mg PO BID PRN (Reason: abdominal pain) Qty: 30 0RF No Action omeprazole 20 mg capsule,delayed release(DR/EC) 20 mg PO DAILY 28 Days Qty: 28 0RF Print Language: Austrian Instructions: Abdominal Pain (ED) Referrals: LEXUS BAZAN [Physician, Gastroenterology] - 1 week STEWART DAVILA [Primary Care Provider, Internal Medicine] - 1 week
[2025-07-01] MEDS: 0.9 % SODIUM CHLORIDE 1,000 ML 999 ML IV (09:23)
[2025-07-01] MEDS: PANTOPRAZOLE SODIUM 40 MG VIAL IV (09:23)
[2025-07-01 09:37] LABS: Hematocrit 42.9 % (42.0-54.0); Hemoglobin 15.3 g/dL (14.0-18.0); Immature Granulocytes Abs Auto 0.02 10^3/uL (0.00-0.03); Immature Granulocytes Pct Auto 0.3 % (0.0-0.5); Lymphocytes Absolute Auto 1.2 10^3/uL (1.2-3.8); Mean Corpuscular HGB Conc 35.7 g/dL (29.9-35.2); Mean Corpuscular Hemoglobin 34.4 pg (25.9-34.0); Mean Corpuscular Volume 96.4 fL (80.0-94.0); Platelet Count 124 10^3/uL (150-450); Red Blood Count 4.45 10^6/uL (4.70-6.10); White Blood Count 5.8 10^3/uL (4.0-11.0)
[2025-07-01 09:44] LABS: Alanine Aminotransferase 35 U/L (16-63); Albumin Globulin Ratio 0.7; Albumin Level 3.2 g/dL (3.4-5.0); Alkaline Phosphatase 92 U/L (46-116); Anion Gap 13.2; Aspartate Amino Transferase 30 U/L (15-37); Blood Urea Nitrogen 5.0 mg/dL (7.0-18.0); Calcium 9.0 mg/dL (8.5-10.1); Carbon Dioxide 25.6 mmol/L (21.0-32.0); Chloride 101 mmol/L (98-107); Estimated GFR (African America >60 (>=60 mL/min/1.73m^2); Estimated GFR (Non-African Ame >60 (>=60 mL/min/1.73m^2); Globulin 4.6 g/dL; Glucose 175 mg/dL (74-106); Lipase 30.0 U/L (16.0-77.0); Potassium 3.8 mmol/L (3.5-5.1); Sodium 136 mmol/L (136-145); Total Protein 7.8 g/dL (6.4-8.2)
[2025-07-01 09:48] LABS: Lactate/Lactic Acid 2.2 mmol/L (0.4-2.0)
[2025-07-01] MEDS: KETOROLAC TROMETHAMINE 30 MG/ML VIAL IVP (10:42)
[2025-07-01 10:45] LABS: Glucose Urine UA NEGATIVE (NEGATIVE)
[2025-07-01 11:07] LABS: Cast Seen? NONE SEEN #/LPF (NONE SEEN); Crystals Seen? None Seen #/HPF (None Seen)
[2025-07-01 11:08] LABS: Urine Culture Indicated NO
--- OUTSIDE RECORDS SUMMARY | 2025-07-01 11:27 | XMS_ITS | Clinical Summary ---
Author Organization [facility] Address [id number] [address] [place] [address] Care Team Providers Care Academic Director Name Role Phone Marty Mason MD Primary Care Provider [phone] Allergies No known active allergies Medications MedicationSigDispense [...] level11/03/2020hronic bilateral low back pain with right-sided /04/2021 Resolved Problems ProblemNoted DateDiagnosed DateResolved DateScrotal wall mwwrisr0402/09/2019 11/03/2020 Immunizations No known immunizations Family History Medical HistoryRelationNameCommentsDiabetesFatherHypertensionFatherCancer Maternal GrandfatherDiabetesMotherCancerPaternal GrandfatherRelationNameStatus CommentsFatherMaternal GrandfatherMotherPaternal Grandfather Social History Tobacco UseTypesPacks/DayYears UsedDateSmoking Tobacco: FormerCigarettesQuit: 2015Smokeless Tobacco: NeverAlcohol UseStandard Drinks/WeekCommentsYes0 (1 standard drink = 0.6 oz pure alcohol)rareAUDIT-CAnswerDate RecordedFrequency of Alcohol NtvdwpskaxpBpwlw28/05/2021verage Number of DrinksNot on file10/07/2020 Frequency of Binge DrinkingNot on file10/07/2020hildcareAnswerDate Recorded NscmvexfcKvswnwi62/10/2019EmploymentAnswerDate RecordedEmploymentUnknown 02/09/2019Hunger ScreeningAnswerDate RecordedWithin the past 12 months we worried whether our food would run out before we got money to buy more.Never True01/16/2024Within the past 12 months the food we bought just didn't last and we didn't have money to get more.Never True4Purpose - LifeAnswerDate RecordedPurpose and direction in uyxrOegzlgv07/04/2021ex and Gender Information ValueDate RecordedSex Assigned at BirthNot on fileLegal LwrCqaq8604/07/2015 12:09 PM EDTGender IdentityNot on fileSexual OrientationNot on file Last Filed Vital Signs Vital SignReadingTime TakenCommentsBlood Uohdygru406/69001/16/2024 5:00 PM EDT Osady2678/16/2024 4:45 PM IYFUktzwaelnae90.5 ??C (99.5 ??F)01/16/2024 1:47 PM EDTRespiratory Avpa699201/16/2024 4:45 PM EDTOxygen Upablwmlzi22%01/16/2024 5:00 PM EDTInhaled Oxygen Concentration--Nkrogr079.1 kg (300 lb)01/16/2024 1:47 PM KPFVnzani712.3 cm (5' 11 )01/16/2024 1:47 PM EDTBody Mass Index41.8401/16/2024 1:47 PM EDT Plan of Treatment Health MaintenanceDue DateLast DoneCommentsDepression Vdyqbhizz88/20/1995 DTaP,Tdap and Td Vaccines (1 - Tdap)2001Adult BMI Eplnlenzn31/16/2025 01/16/2024Tobacco Mdyuhongy13Influenza Dnwzhve2605/03/2025 Goals GoalPatient Goal TypeAssociated ProblemsRecent ProgressPatient-Stated?Author Home Carola Meier LSW Note: Evaluation of progress towards goal: Safe dc transition from hospital to home with family support. Medical Devices ImplantedTypeAreaManufacturerDevice IdentifierShelf Expiration DateModel / Serial / LotCg Spnl [id number] [place] 6d - [id number] - [id number] Implanted:Qty: 1 on 11/02/2020 by Garrett Michaels, DO at [facility]/A: BackSTRYKER [id number] / [id number] / [id number]:10 x 32 x 10 mm 6 degree [id number] Bn Dmnr Fbr 15ml Biologic - [id number] - [id number] Implanted:Qty: 1 on 11/02/2020 by Garrett Michaels DO at [facility]/A: BackSTRYSEKOU [id number] / [id number] / NARod Spnl 40mm 5.5mm Cntr y - [id number] - [id number] Implanted:Qty: 1 on 11/02/2020 by Garrett Michaels, DO at [facility]/A: BackSTRYKER [id number] / [id number] / Juliano Spnl 45mm 5.5mm Cntr y - [id number] - [id number] Implanted:Qty: 1 on 11/02/2020 by Garrett Michales DO at [facility]/A: BackSTRYKER [id number] / [id number] / Scr Set Spne Vrst Gry - [id number] - [id number] Implanted:Qty: 4 on 11/02/2020 by Garrett Michaels DO at [facility]/A: BackSTRYKER [id number] / [id number] / Scr Bn 55mm 6.5mm Pa Spne Vrst - [id number] - [id number] Implanted:Qty: 1 on 11/02/2020 by Garrett Michaels DO at [facility]/A: BackSTRYKER [id number] / [id number] / Scr Bn 40mm 6.5mm Pa Spne Vrst - [id number] - [id number] Implanted:Qty: 1 on 11/02/2020 by Garrett Michaels DO at [facility]/A: BackSTRYKER [id number] / [id number] / Scr Bn 45mm 6.5mm Pa Spne Vrst - [id number] - [id number] Implanted:Qty: 1 on 11/02/2020 by Garrett Michaels DO at [facility]/A: BackSTRYKER [id number] / [id number] / Scr Bn 45mm 7.5mm Pa Spne Vrst - [id number] - [id number] Implanted:Qty: 1 on 11/02/2020 by Garrett Michaels DO at [facility]/A: BackSTRYKER [id number] / [id number] / Insurance Advance Directives * Full Code (Latest Code Status on File) Date ActivatedDate InactivatedComments11/02/2020 4:37 PM11/05/2020 4:48 PM * Full Code Date ActivatedDate InactivatedComments02/09/2019 5:23 AM02/11/2019 8:29 PM Care Teams Team MemberRelationshipSpecialtyStart DateEnd Date Marty Mason MD [address] [facility] [address] [place] [id number] PCP - GeneralInternal Medicine02/09/19
--- OUTSIDE RECORDS SUMMARY | 2025-07-01 11:27 | XMS_ITS | Clinical Summary ---
Author Organization [facility] Healthcare Address [address] [place] [address] Care Team Providers Care Computational Physicist Name Role Phone Marty Mason MD Primary Care Provider [phone] Allergies No known active allergies Medications MedicationSigDispense [...] 5Active Active Problems ProblemNoted DateDiagnosed DateNon-seasonal allergic zvrkrocz02/15/2025 Tekwesstiehocysi48/06/2025Type 2 diabetes mellitus with other specified drmwfoaiighc23/06/2025Mixed fununjdrpfrttw37/06/2025Total bilirubin, elevated 02/05/2025Morbid wtjewjm0112/28/2024MI 40.0-44.9, adult12/28/2024Former smoker 07/16/2023Lumbosacral radiculopathy at L501/10/2023Spondylolisthesis at L5-S1 level01/10/2023Obstructive sleep apnea wjztcdfi30/11/2023Traumatic arthritis of right hip01/10/2023ost laminectomy qcgkuhnq22/11/2021hronic bilateral low back pain with right-sided daieuyca60/04/2021umbar disc herniation with srfghebkkaobk66/04/2021 Resolved Problems ProblemNoted DateDiagnosed DateResolved DateElevated LDL cholesterol level /omplication of surgical ftemojckx21 Neuralgia of right flankObesity (BMI 30-39.9)01/10/2023 12/28/20244769Hvxyuwlfxtq69/11/202306/01/2025Unspecified mononeuropathy of right lower limbXanthoma of eretlg14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 Encounters DateTypeDepartmentCare LyrmNlwbmwsytbb03/27/2025Telephone [facility] [address] [place] [address] Kirsten Lance LPN 06/07/2025bstract [facility] [address] [place] [address] Marty Msaon MD 05/25/2025bstract [facility] [address] [place] [address] Marty Mason MD 05/20/2025bstract [facility] [address] [place] [address] Marty Mason MD 05/18/2025Telephone [facility] [address] [facility] [address] [place] [address] Kirsten Lance LPN 05/18/2025Results Follow-Up [facility] [address] [place] [address] Kavya Mesa PA CBC, Iron + transferrin + TIBC05/17/2025 9:30 AM EDTOffice Visit [facility] [address] [facility] [address] [place] [address] Kavya Mesa PA Type 2 diabetes mellitus with other specified complication, without long-term current use of insulin ([facility]) (Primary Dx); Non-seasonal allergic rhinitis due to other allergic trigger; Thrombocytopenia; Morbid [place] [place] BMI 40.0-44.9, adult ([facility]); Mixed ovedymmprjllzl25/15/2025bstract [facility] [address] [facility] [address] [place] [address] Marty Mason MD 05/17/2025amboo flowsheet [facility] [address] [place] [address] Kavya Mesa PA 05/17/2025Travelfrom Last 3 Months Family History Medical HistoryRelationNameCommentsDiabetesFatherHypertensionFatherHypertension MotherRelationNameStatusCommentsFatherAliveMotherAlive Social History Tobacco UseTypesPacks/DayYears UsedDateSmoking Tobacco: FormerCigarettesQuit: 09/02/2015Smokeless Tobacco: Never Tobacco Cessation:Counseling Given: Not Answered Comments:Last smoked : > 5-10 years Alcohol UseStandard Drinks/WeekCommentsYes2 (1 standard drink = 0.6 oz pure alcohol)Caffeine intake : teaPHQ-2AnswerDate RecordedPatient Health Questionnaire-2 Pwian831Sex and Gender InformationValueDate RecordedSex Assigned at BirthNot on fileLegal CgoVpxz3011/14/2022 7:05 PM EDTGender Identity Not on fileSexual OrientationNot on file Last Filed Vital Signs Vital SignReadingTime TakenCommentsBlood Yzrustfn787/70005/17/2025 9:38 AM EDT Zhihb000505/17/2025 9:38 AM JSOQydjuflzslg02.2 ??C (99 ??F)12/28/2024 10:37 AM EDT Respiratory Ioiq504905/17/2025 9:38 AM EDTOxygen Bdofwpyidx37%05/17/2025 9:38 AM EDTInhaled Oxygen Concentration--Fyviim246 kg (302 lb 12.8 oz)05/17/2025 9:38 AM YDILwulgt903.3 cm (5' 11 )05/17/2025 9:38 AM EDTBody Mass Index42.23005/17/2025 9:38 AM EDT Plan of Treatment DateTypeDepartmentCare Team (Latest Contact Info)Iwvkftqdqam03/03/2025 9:00 AM ESTOffice Visit [facility] [address] [facility] [address] [place] [address] Kavya Mesa PA [address] [facility] [address] [place] [address] Health MaintenanceDue DateLast DoneCommentsMMR Vaccines (1 of 1 - Standard series)1983DTaP/Tdap/Td Vaccines (1 - Tdap)1989Diabetes: Retinopathy Fzpttsmak61/20/1993Varicella Vaccines (1 of 2 - 13+ 2-dose series)1995 Hepatitis B Vaccines (1 of 3 - 19+ 3-dose series)2001Pneumococcal Vaccine: Pediatrics (0 to 5 Years) and At-Risk Patients (6 to 64 Years) (1 of 2 - PCV) 2001HPV Vaccines (1 - 3-dose SCDM series)2009COVID-19 Vaccine ( season)2025Diabetes: Hemoglobin A1C5005/17/2025, 01/29/2025, 02/25/2023, Additional history existsDiabetes: Urine Protein Reoecjkwa61/12/76685002/11/2025HIB VaccinesAged OutNo longer eligible based on patient's [...] Procedures Procedure NamePriorityDate/TimeAssociated DiagnosisCommentsIRON + TRANSFERRIN + CENDDddxmap71/15/2025 9:58 AM EDT Thrombocytopenia WGWIfmapmd12/15/2025 9:58 AM EDT Thrombocytopenia POCT GLYCATED HEMOGLOBIN, KMQVOZghiliy94/15/2025 9:42 AM EDT Type 2 diabetes mellitus with other specified complication, without long-term current use of insulin (HCC) MICROALBUMIN / CREATININE URINE MLIFACalzhay51/12/2025 2:06 PM EDT Type 2 diabetes mellitus with other specified complication, without long-term current use of insulin (HCC) from Last 3 Months or Most Recently Relevant to Health Maintenance Results * (ABNORMAL) Iron + transferrin + TIBC (05/17/2025 9:58 AM EDT)ComponentValueRef RangeTest MethodAnalysis TimePerformed AtPathologist SignatureIRON, PTXDV8030 - 180 mcg/dLQUESTIRON BINDING XOAOQUCG445614 - 425 mcg/dL (calc)QUEST% USTDWGCIPO91(L)20 - 48 % (calc)XZPLXOLSUGXIB67520 - 380 ng/mLQUESTSpecimen (Source)Anatomical Location / LateralityCollection Method / VolumeCollection TimeReceived GvwvPerex06/15/2025 9:58 AM EDT05/17/2025 9:59 AM EDT Narrative Resulting Agency Comment Performing Organization Information ?Site ID: QPT ?Name: [facility] ?Address: [address] , [address] [place] [address] ?Director: Philip Simpson MD Authorizing ProviderResult TypeResult StatusKavya PACKER BLOOD ORDERABLESFinal ResultPerforming OrganizationAddressCity/State/ZIP CodePhone Number QUEST * (ABNORMAL) CBC (05/17/2025 9:58 AM EDT)ComponentValueRef RangeTest Method Analysis TimePerformed AtPathologist SignatureWHITE BLOOD CELL COUNT4.53.8 - 10.8 Thousand/uLQUESTRED BLOOD CELL COUNT4.734.20 - 5.80 Million/uLQUEST HPWBWMNJAX77.013.2 - 17.1 g/nAUAPIDZDVJQHZFOC57.038.5 - 50.0 %KPQCDXJW563.6(H) 80.0 - 100.0 kGHWBNHSKQ01.8(H)27.0 - 33.0 exWNWBELDLC98.732.0 - 36.0 g/dLQUEST Comment: For adults, a slight decrease in the calculated MCHC value (in the range of 30 to 32 g/dL) is most likely not clinically significant; however, it should be interpreted with caution in correlation with other red cell parameters and the patient's clinical condition. RDW13.411.0 - 15.0 %QUESTPLATELET BLNIY869(L)140 - 400 Thousand/hQCMEBVLMO85.2 7.5 - 12.5 fLQUESTSpecimen (Source)Anatomical Location / LateralityCollection Method / VolumeCollection TimeReceived TimeBloodVenous blood specimen / Unknown 05/17/2025 9:58 AM EDT05/17/2025 9:59 AM EDT Narrative Resulting Agency Comment Performing Organization Information ?Site ID: QPT ?Name: [facility] ?Address: [address] [place] [place] [address] ?Director: Philip Simpson MD Authorizing ProviderResult TypeResult StatusKavya Porter Hemmarlyn PALAB BLOOD ORDERABLESFinal ResultPerforming OrganizationAddressCity/State/ZIP CodePhone Number [facility] * (ABNORMAL) POCT Glycated hemoglobin, total (05/17/2025 9:42 AM EDT)Component ValueRef RangeTest MethodAnalysis TimePerformed AtPathologist Signature Hemoglobin A1C6.0Specimen (Source)Anatomical Location / LateralityCollection Method / VolumeCollection TimeReceived UbwwLqkis14/15/2025 9:42 AM EDT Narrative Authorizing ProviderResult TypeResult Priti Mesa PAPOINT OF CARE TEST ENTER/EDIT ORDERABLESFinal Result * Microalbumin / creatinine, urine ratio (02/11/2025 2:06 PM EDT)ComponentValue Ref RangeTest MethodAnalysis TimePerformed AtPathologist SignatureCREATININE, RANDOM TNXOI20445 - 320 mg/dLQUESTALBUMIN, URINE1.2See Note: mg/dLQUEST Comment: [...] specimen obtained by clean catch procedure / Nywojgi9202/11/2025 2:06 PM EDT02/11/2025 2:07 PM EDT Narrative Resulting Agency Comment Performing Organization Information ?Site ID: QPT ?Name: [facility] ?Address: [address] [place] [phone] ?Director: Philip Simpson MD Authorizing ProviderResult TypeResult Priti Mesa PALAB URINE ORDERABLESFinal ResultPerforming OrganizationAddressCity/State/ZIP CodePhone Number QUEST from Last 3 Months or Most Recently Relevant to Health Maintenance Insurance Care Teams Team MemberRelationshipSpecialtyStart DateEnd Date Marty Mason MD [address] [facility] [address] [place] [address] PCP - GeneralInternal Medicine01/14/23
--- OUTSIDE RECORDS SUMMARY | 2025-07-01 11:27 | XMS_ITS | Encounter Summary ---
Author Organization [facility] Address [address] [place] [address] Care Team Providers Care Red Hat Linux Engineer Name Role Phone Marty Mason MD Primary Care Provider [phone] Encounter Details DateTypeDepartmentCare Team (Latest Contact Info)Tfxcyaxnlit17/27/2025Telephone [facility] [address] [place] [address] Kirsten Lance LPN [address] [place], [place] [id number] Social History Tobacco UseTypesPacks/DayYears UsedDateSmoking Tobacco: FormerCigarettesQuit: 09/02/2015Smokeless Tobacco: Never Comments:Last smoked : > 5-1 0 years Alcohol UseStandard Drinks/WeekCommentsYes2 (1 standard drink = 0.6 oz pure alcohol)Caffeine intake : teaPHQ-2AnswerDate RecordedPatient Health Questionnaire-2 Sdyuf409Sex and Gender InformationValueDate RecordedSex Assigned at BirthNot on fileLegal ZyvWsiw3111/14/2022 7:05 PM EDTGender Identity Not on fileSexual [...] documented in this encounter Plan of Treatment DateTypeDepartmentCare Team (Latest Contact Info)Chphinrenoe37/03/2025 9:00 AM ESTOffice Visit [facility] [address] [place] [address] Kavya Mesa PA [address] [place] [address] documented as of this encounter Visit Diagnoses Not on filedocumented in this encounter Care Teams Team MemberRelationshipSpecialtyStart DateEnd Date Marty Mason MD [address] [place] [address] PCP - GeneralInternal Medicine01/14/23documented as of this encounter
--- NOTE | 2025-07-01 11:47 | CT_ITS ---
The [address] [address] Patient Name: CARIN SO MRN: [id number] date: 1980 Sex: M Assigned Patient Location: ED.MAIN Current Patient Location: ED.MAIN Accession/Order Number: [id number] Exam Date: 07/01/2025 11:40 Report Date: 07/01/2025 12:12 At the request of: TOYIN HAMM Procedure: CT abdomen pelvis w con CT ABDOMEN AND PELVIS WITH CONTRAST Ceasar: 06/28/2025 CLINICAL DATA: Continued worsening abdominal pain. Elevated lactate Spiral images were obtained through the abdomen and pelvis following 100 mL of Omnipaque 300. This CT exam was performed using one or more following dose reduction techniques: Automated exposure control, adjustment of the mA and/or kV according to patient size, or use of iterative reconstruction technique. Limited cuts through the lung bases show minor atelectasis. There is a tiny hiatal hernia. Distal esophageal varices are noted. The top of the liver and spleen are not included in their entirety. There is fatty infiltration of the liver. No developing intrahepatic masses are seen. Splenomegaly is still suspected. The pancreas is normal in size and contour though there is continued peripancreatic stranding which also extends along the duodenal sweep, right lateral conal fascia and superior mesenteric artery. The adrenal glands show no nodularity. There are symmetric renal nephrograms, without hydronephrosis. There is a punctate stone at the lower pole on the left. The abdominal aorta is normal caliber. Small abdominal lymph nodes are visualized. No ascites is seen. Food debris is present within the stomach. There are normal caliber small bowel loops. Mild stool is noted within the colon, greater on the right. Slight dextroscoliotic curvature as well as postoperative and degenerative changes are seen at the spine. There is continued lumbosacral spondylolisthesis. Images through the pelvis show no appendiceal inflammation. There are normal caliber small bowel loops. A small amount of distal colonic stool is visualized. No diverticular disease is identified. There is a small umbilical hernia containing fat. The prostate is not enlarged. The urinary bladder wall is still appears thickened however it is not fully distended. No pelvic ascites is seen. There are small benign-appearing inguinal lymph nodes. CT/CT abdomen pelvis w con IMPRESSION: FATTY LIVER. SPLENOMEGALY AND VARICES. CONTINUED INFLAMMATORY CHANGE AROUND THE PROXIMAL PANCREAS AND DUODENAL SWEEP. CORRELATION IS SUGGESTED. LEFT NEPHROLITHIASIS. NO BOWEL OR URINARY TRACT OBSTRUCTION. CONTINUED URINARY BLADDER WALL THICKENING. CORRELATION IS SUGGESTED TO EXCLUDE THE POSSIBILITY OF CYSTITIS. Impression dictated by: Kavya Rodas M.D. 07/01/2025 12:12 PM Dictation Location: [place] [address] Electronically authenticated by: [id number] Y Date: 07/01/2025 12:12
[2025-07-01] MEDS: 0.9 % SODIUM CHLORIDE 1,000 ML 1000 ML IV (11:59)
[2025-07-01 12:37] LABS: Lactate/Lactic Acid 1.2 mmol/L (0.4-2.0)
== END 2025-07-01 12:56 | disposition home or self-care (01) ==
PROVIDERS: Emergency Provider Emergency Medicine; PCP Internal Medicine
DX: R10.84 Generalized abdominal pain (principal); K76.0 Fatty (change of) liver, not elsewhere classified; R16.1 Splenomegaly, not elsewhere classified; N20.0 Calculus of kidney
CPT/HCPCS: 36415; 74177; 80053; 81001; 82248; 83605; 83690; 85025; 96374; 96375; 99284; J1885; J2405; Q9967

== ENCOUNTER 2025-07-08 08:18 | Emergency (ER) | payer BC, SELFPAY ==
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
[2025-07-08] VITALS (16 sets, daily range): BP systolic 117–143; BP diastolic 65–85; PULSE 64–115; TEMP 36.6; O2SAT 95–99; BMI 41.0
--- OUTSIDE RECORDS SUMMARY | 2025-07-08 08:23 | XMS_ITS | Clinical Summary ---
Author Organization [facility] Address [id number] [address] [place] [address] Care Team Providers Care Paper Testing Supervisor Name Role Phone Marty Mason MD Primary Care Provider [phone] Allergies No known active allergies Medications MedicationSigDispense [...] level11/03/2020hronic bilateral low back pain with right-sided itgdshnn03/04/2021 Resolved Problems ProblemNoted DateDiagnosed DateResolved DateScrotal wall pcgufni5002/09/2019 11/03/2020 Immunizations No known immunizations Family History Medical HistoryRelationNameCommentsDiabetesFatherHypertensionFatherCancer Maternal GrandfatherDiabetesMotherCancerPaternal GrandfatherRelationNameStatus CommentsFatherMaternal GrandfatherMotherPaternal Grandfather Social History Tobacco UseTypesPacks/DayYears UsedDateSmoking Tobacco: FormerCigarettesQuit: 2015Smokeless Tobacco: NeverAlcohol UseStandard Drinks/WeekCommentsYes0 (1 standard drink = 0.6 oz pure alcohol)rareAUDIT-CAnswerDate RecordedFrequency of Alcohol BcigndttkkyHvpha61/05/2021verage Number of DrinksNot on file10/07/2020 Frequency of Binge DrinkingNot on file10/07/2020hildcareAnswerDate Recorded YozsfcsnlTwclirq04/10/2019EmploymentAnswerDate RecordedEmploymentUnknown 02/09/2019Hunger ScreeningAnswerDate RecordedWithin the past 12 months we worried whether our food would run out before we got money to buy more.Never True01/16/2024Within the past 12 months the food we bought just didn't last and we didn't have money to get more.Never True4Purpose - LifeAnswerDate RecordedPurpose and direction in etxcLbctkdu91/04/2021ex and Gender Information ValueDate RecordedSex Assigned at BirthNot on fileLegal CjbAfnm0104/07/2015 12:09 PM EDTGender IdentityNot on fileSexual OrientationNot on file Last Filed Vital Signs Vital SignReadingTime TakenCommentsBlood Hbycanfe492/69001/16/2024 5:00 PM EDT Ynwio2292/16/2024 4:45 PM RMKEpqwolvtxzh30.5 ??C (99.5 ??F)01/16/2024 1:47 PM EDTRespiratory Pnaf559901/16/2024 4:45 PM EDTOxygen Auraathiup59%01/16/2024 5:00 PM EDTInhaled Oxygen Concentration--Vyktkr734.1 kg (300 lb)01/16/2024 1:47 PM LYRJaiuph489.3 cm (5' 11 )01/16/2024 1:47 PM EDTBody Mass Index41.8401/16/2024 1:47 PM EDT Plan of Treatment Health MaintenanceDue DateLast DoneCommentsDepression Lomrviigp02/20/1995 DTaP,Tdap and Td Vaccines (1 - Tdap)2001Adult BMI Yufbxkvdc69/16/2025 01/16/2024Tobacco Cuxpqquph55Influenza Afwyhff9205/03/2025 Goals GoalPatient Goal TypeAssociated ProblemsRecent ProgressPatient-Stated?Author Home Carola Meier LSW Note: Evaluation of progress towards goal: Safe dc transition from hospital to home with family support. Medical Devices ImplantedTypeAreaManufacturerDevice IdentifierShelf Expiration DateModel / Serial / LotCg Spnl [id number] [place] 6d - [id number] - [id number] Implanted:Qty: 1 on 11/02/2020 by Garrett Michaels, DO at [facility]/A: BackSTRYKER [id number] / [id number] / [id number]:10 x 32 x 10 mm 6 degree [id number] Bn Dmnr Fbr 15ml Biologic - [id number] - [id number] Implanted:Qty: 1 on 11/02/2020 by Garrett Michaels DO at [facility]/A: BackSTRYSEKOU [id number] / [id number] / NARod Spnl 40mm 5.5mm Cntr y - [id number] - [id number] Implanted:Qty: 1 on 11/02/2020 by Garrett Michaels, DO at [facility]/A: BackSTRYKER [id number] / [id number] / Juliano Spnl 45mm 5.5mm Cntr y - [id number] - [id number] Implanted:Qty: 1 on 11/02/2020 by Garrett Michaels DO at [facility]/A: BackSTRYKER [id number] / [id number] / Scr Set Spne Vrst Gry - [id number] - [id number] Implanted:Qty: 4 on 11/02/2020 by Garrett Michaels DO at [facility]/A: BackSTRYKER [id number] / [id number] / Scr Bn 55mm 6.5mm Pa Spne Vrst - [id number] - [id number] Implanted:Qty: 1 on 11/02/2020 by Garrett Michaels DO at [facility]/A: BackSTRYKER [id number] / [id number] / Scr Bn 40mm 6.5mm Pa Spne Vrst - [id number] - [id number] Implanted:Qty: 1 on 11/02/2020 by Garrett Michaels DO at [facility]/A: BackSTRYKER [id number] / [id number] / Scr Bn 45mm 6.5mm Pa Spne Vrst - [id number] - [id number] Implanted:Qty: 1 on 11/02/2020 by Garrett Michaels DO at [facility]/A: BackSTRYKER [id number] / [id number] / Scr Bn 45mm 7.5mm Pa Spne Vrst - [id number] - [id number] Implanted:Qty: 1 on 11/02/2020 by Garrett Michaels DO at [facility]/A: BackSTRYKER [id number] / [id number] / Insurance Advance Directives * Full Code (Latest Code Status on File) Date ActivatedDate InactivatedComments11/02/2020 4:37 PM11/05/2020 4:48 PM * Full Code Date ActivatedDate InactivatedComments02/09/2019 5:23 AM02/11/2019 8:29 PM Care Teams Team MemberRelationshipSpecialtyStart DateEnd Date Marty Mason MD [address] [facility] 110 [place] [id number] PCP - GeneralInternal Medicine02/09/19
--- OUTSIDE RECORDS SUMMARY | 2025-07-08 08:23 | XMS_ITS | Encounter Summary ---
Author Organization [facility] Address [address] [place] [address] Care Team Providers Care Spring Former Machine Name Role Phone Marty Mason MD Primary Care Provider [phone] Encounter Details DateTypeDepartmentCare Team (Latest Contact Info)Yuxryyatqhk64/04/2025bstract [facility] [address] [place] [address] [place] [address] Marty Mason MD [address] [place] [address] [place] [address] Social History Tobacco UseTypesPacks/DayYears UsedDateSmoking Tobacco: FormerCigarettesQuit: 09/02/2015Smokeless Tobacco: Never Comments:Last smoked : > 5-1 0 years Alcohol UseStandard Drinks/WeekCommentsYes2 (1 standard drink = 0.6 oz pure alcohol)Caffeine intake : teaPHQ-2AnswerDate RecordedPatient Health Questionnaire-2 Mslrt82609/04/2024Sex and Gender InformationValueDate RecordedSex Assigned at BirthNot on fileLegal NczIkpd3011/14/2022 7:05 PM EDTGender Identity Not on fileSexual OrientationNot on filedocumented as of this encounter Plan of Treatment Not on file documented as of this encounter Visit Diagnoses Not on filedocumented in this encounter Care Teams Team MemberRelationshipSpecialtyStart DateEnd Date Marty Mason MD [address] [place] [address] [place] [address] PCP - GeneralInternal Medicine01/14/23documented as of this encounter
--- OUTSIDE RECORDS SUMMARY | 2025-07-08 08:23 | XMS_ITS | Encounter Summary ---
Author Organization [facility] Address [address] [place] [address] Care Team Providers Care Advanced Research Programs Director Name Role Phone Marty Mason MD Primary Care Provider [phone] Encounter Details DateTypeDepartmentCare Team (Latest Contact Info)Jnlrluhhizu71/03/2025Travel Social History Tobacco UseTypesPacks/DayYears UsedDateSmoking Tobacco: FormerCigarettesQuit: 09/02/2015Smokeless Tobacco: Never Comments:Last smoked : > 5-1 0 years Alcohol UseStandard Drinks/WeekCommentsYes2 (1 standard drink = 0.6 oz pure alcohol)Caffeine intake : teaPHQ-2AnswerDate RecordedPatient Health Questionnaire-2 Uqfzw73009/04/2024Sex and Gender InformationValueDate RecordedSex Assigned at BirthNot on fileLegal JrlJkjc4511/14/2022 7:05 PM EDTGender Identity Not on fileSexual OrientationNot on filedocumented as of this encounter Functional Status * Over the past 2 weeks, how often have you been bothered by any of the following problems?QuestionAnswerDate of AssessmentAuthorLittle interest or pleasure in doing thingsNot at all07/05/2025 9:03 AM Kirsten Segal LPN Feeling down, depressed, or hopelessNot at all07/05/2025 9:03 AM Kirsten Segal LPNPatient Health Questionnaire-2 Jiivs02009/04/2024 9:03 AM Kirsten Segal LPN documented as of this encounter Plan of Treatment Not on file documented as of this encounter Visit Diagnoses Not on filedocumented in this encounter Care Teams Team MemberRelationshipSpecialtyStart DateEnd Date Marty Mason MD [address] [facility] [address] [place] [address] PCP - GeneralInternal Medicine01/14/23documented as of this encounter
--- OUTSIDE RECORDS SUMMARY | 2025-07-08 08:24 | XMS_ITS | Encounter Summary ---
Author Organization [facility] Address [address] [place] [address] Care Team Providers Care Carbon Cutter Name Role Phone Marty Mason MD Primary Care Provider [phone] Encounter Details DateTypeDepartmentCare Team (Latest Contact Info)Fvmyybizipx37/04/2025bstract [facility] [address] [place] [address] [place] [address] Marty Mason MD [address] [place] [address] [place] [address] Social History Tobacco UseTypesPacks/DayYears UsedDateSmoking Tobacco: FormerCigarettesQuit: 09/02/2015Smokeless Tobacco: Never Comments:Last smoked : > 5-1 0 years Alcohol UseStandard Drinks/WeekCommentsYes2 (1 standard drink = 0.6 oz pure alcohol)Caffeine intake : teaPHQ-2AnswerDate RecordedPatient Health Questionnaire-2 Goefs64109/04/2024Sex and Gender InformationValueDate RecordedSex Assigned at BirthNot on fileLegal XimPnjx6811/14/2022 7:05 PM EDTGender Identity Not on fileSexual OrientationNot on filedocumented as of this encounter Plan of Treatment Not on file documented as of this encounter Visit Diagnoses Not on filedocumented in this encounter Care Teams Team MemberRelationshipSpecialtyStart DateEnd Date Marty Mason MD [address] [place] [address] [place] [address] PCP - GeneralInternal Medicine01/14/23documented as of this encounter
--- OUTSIDE RECORDS SUMMARY | 2025-07-08 08:24 | XMS_ITS | Encounter Summary ---
Author Organization [facility] Address [address] [place] [address] Care Team Providers Care Chief Cardiopulmonary Technologist Name Role Phone Marty Mason MD Primary Care Provider [phone] Encounter Details DateTypeDepartmentCare Team (Latest Contact Info)Bccxxfncuiz60/03/2025bstract [facility] [address] [place] [address] Marty Mason MD [address] [place], [place] [id number] Social History Tobacco UseTypesPacks/DayYears UsedDateSmoking Tobacco: FormerCigarettesQuit: 09/02/2015Smokeless Tobacco: Never Comments:Last smoked : > 5-1 0 years Alcohol UseStandard Drinks/WeekCommentsYes2 (1 standard drink = 0.6 oz pure alcohol)Caffeine intake : teaPHQ-2AnswerDate RecordedPatient Health Questionnaire-2 Onbem94009/04/2024Sex and Gender InformationValueDate RecordedSex Assigned at BirthNot on fileLegal YrvDlqb0511/14/2022 7:05 PM EDTGender Identity Not on fileSexual OrientationNot on filedocumented as of this encounter Functional Status * Over the past 2 weeks, how often have you been bothered by any of the following problems?QuestionAnswerDate of AssessmentAuthorLittle interest or pleasure in doing thingsNot at all07/05/2025 9:03 AM Kirsten Segal, FIXTURE RELAMPER Feeling down, depressed, or hopelessNot at all07/05/2025 9:03 AM Kirsten Segal, CHANTELLENPatient Health Questionnaire-2 Gheul56309/04/2024 9:03 AM Kirsten Segal LPN documented as of this encounter Plan of Treatment Not on file documented as of this encounter Visit Diagnoses Not on filedocumented in this encounter Care Teams Team MemberRelationshipSpecialtyStart DateEnd Date Marty Mason MD 112 [facility] 110 [place] [address] PCP - GeneralInternal Medicine01/14/23documented as of this encounter
--- OUTSIDE RECORDS SUMMARY | 2025-07-08 08:24 | XMS_ITS | Clinical Summary ---
Author Organization [facility] Address [address] [place] [address] Care Team Providers Care Dairy Nutritionist Name Role Phone Marty Mason MD Primary Care Provider [phone] Allergies No known active allergies Medications MedicationSigDispense [...] (one) time per week 3 mL 5Active Additional Information Patient not taking.Reason: stopped it last week d/t he thought that might be what was causing his pain, Reported on 07/05/2025 dicyclomine (Bentyl) 20 MG tablet Take 20 mg by mouth 2 (two) times a day as needed (ABD Pain)07/01/2025tive hyoscyamine (Levsin) 0.125 MG SL tablet Take 0.125 mg by mouth every 6 (six) hours if needed for gxnewmgf51/30/2025 Active omeprazole (PriLOSEC) [address] capsule Take 20 mg by mouth in the morning.5Active HYDROcodone-acetaminophen (D[place]) 7.5-325 MG tablet Indications:Lower abdominal painTake 1 tablet by mouth every 6 (six) hours if needed for severe pain for up to 5 days 20 tablet /5Active amoxicillin-clavulanate (Augmentin) 875-125 MG tablet Indications:Cystitis,DuodenitisTake 1 tablet (875 mg) by mouth in the morning and 1 tablet (875 mg) in the evening. Take with meals. Do all this for 10 days. 20 tablet 5Active Active Problems ProblemNoted DateDiagnosed DateNon-seasonal allergic punmitwh45/15/2025 Hmdgdsuspdybwfpp99/06/2025Type 2 diabetes mellitus with other specified tkpeyapjdhdw45/06/2025Mixed ujvvluwxkdyxtg36/06/2025Total bilirubin, elevated 02/05/2025Morbid sknexga9012/28/2024MI 40.0-44.9, adult12/28/2024Former smoker 07/16/2023Lumbosacral radiculopathy at L501/10/2023Spondylolisthesis at L5-S1 level01/10/2023Obstructive sleep apnea cxpovdrs11/11/2023Traumatic arthritis of right hip01/10/2023ost laminectomy aqzrobvo02/11/2021hronic bilateral low back pain with right-sided ksxfgysj65/04/2021umbar disc herniation with vlenrixddcgqn49/04/2021 Resolved Problems ProblemNoted DateDiagnosed DateResolved DateElevated LDL cholesterol level /omplication of surgical yursffkdl86/ Neuralgia of right flank/Obesity (BMI 30-39.9)01/10/2023 12/28/20241120Tmahgdqrczd98/11/202306/01/2025Unspecified mononeuropathy of right lower limbXanthoma of bcuwju44/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 Encounters DateTypeDepartmentCare UzwaVrwlgkwcoyw62/04/2025bstract [facility] [address] [place] [address] Marty Mason MD 07/06/2025bstract [facility] [address] [place] [address] Marty Mason MD 07/05/2025 9:00 AM ESTOffice Visit [facility] [address] [place] [address] Kavya Mesa PA Lower abdominal pain (Primary Dx); Cystitis; Duodenitis; Fatty infiltration of liver; Qwtjoshvganp83/03/2025bstract [facility] [address] [place] [address] Marty Mason MD 07/05/2025amboo flowsheet [facility] [address] [place] [address] Kavya Mesa PA 07/05/20250931Xbrnai11/27/2025Telephone [facility] [address] [place] [address] Kirsten Lance LPN 06/07/2025bstract [facility] [address] [place] [address] Marty Mason MD 05/25/2025bstract [facility] [address] [place] [address] Marty Mason MD 05/20/2025bstract [facility] [facility] [address] [facility] [address] [place] [address] Marty Mason MD 05/18/2025Telephone [facility] [facility] [address] [facility] 110 [place] [address] Kirsten LanceOWEN 05/18/2025Results Follow-Up [facility] [place] [facility] [address] [facility] [address] [place] [address] Kavya Mesa, PA CBC, Iron + transferrin + TIBC05/17/2025 9:30 AM EDTOffice Visit [facility] [place] [facility] [address] [facility] [address] [place] [address] Kavya Mesa, PA Type 2 diabetes mellitus with other specified complication, without long-term current use of insulin (HCC) (Primary Dx); Non-seasonal allergic rhinitis due to other allergic trigger; Thrombocytopenia; Morbid obesity ([facility]); BMI 40.0-44.9, adult ([facility]); Mixed kywgvrwovijuoc52/15/2025bstract [facility] [place] [facility] [address] [facility] [address] [place] [address] Marty Mason MD 05/17/2025amboo flowsheet [facility] [place] [facility] [address] [facility] [address] [place] [address] Kavya Mesa PA 05/17/2025Travelfrom Last 3 Months Family History Medical HistoryRelationNameCommentsDiabetesFatherHypertensionFatherHypertension MotherRelationNameStatusCommentsFatherAliveMotherAlive Social History Tobacco UseTypesPacks/DayYears UsedDateSmoking Tobacco: FormerCigarettesQuit: 09/02/2015Smokeless Tobacco: Never Tobacco Cessation:Counseling Given: Not Answered Comments:Last smoked : > 5-10 years Alcohol UseStandard Drinks/WeekCommentsYes2 (1 standard drink = 0.6 oz pure alcohol)Caffeine intake : teaPHQ-2AnswerDate RecordedPatient Health Questionnaire-2 Ywyir33709/04/2024Sex and Gender InformationValueDate RecordedSex Assigned at BirthNot on fileLegal JbyVcvr7711/14/2022 7:05 PM EDTGender Identity Not on fileSexual OrientationNot on file Last Filed Vital Signs Vital SignReadingTime TakenCommentsBlood Pkhfyfvo584/8011 9:11 AM EST Vwnqg515807/05/2025 9:11 AM YKBNotpyzlawim52.2 ??C (99 ??F)12/28/2024 10:37 AM EDT Respiratory Poci673409/04/2024 9:11 AM ESTOxygen Fmnlsyltcj75%07/05/2025 9:11 AM ESTInhaled Oxygen Concentration--Kogper447 kg (301 lb 3.2 oz)07/05/2025 9:11 AM VIKGufaaw393.3 cm (5' 11 )07/05/2025 9:11 AM ESTBody Mass Index42.01109/04/2024 9:11 AM EST Plan of Treatment Health MaintenanceDue DateLast DoneCommentsDiabetes: Retinopathy Screening 1992Pneumococcal Vaccine: Pediatrics (0 to 5 Years) and At-Risk Patients (6 to 64 Years) (1 of 2 - PCV)2001COVID-19 Vaccine ( season) 2025Diabetes: Hemoglobin A1C, 01/29/2025, 02/25/2023, Additional history existsDiabetes: Urine Protein Wzpsxatcd53 Influenza VaccineDiscontinued Procedures Procedure NamePriorityDate/TimeAssociated DiagnosisCommentsIRON + TRANSFERRIN + PBMPUnqkvjj20/15/2025 9:58 AM EDT Thrombocytopenia JWANzneudl35/15/2025 9:58 AM EDT Thrombocytopenia POCT GLYCATED HEMOGLOBIN, DMUIKLrtgqvu58/15/2025 9:42 AM EDT Type 2 diabetes mellitus with other specified complication, without long-term current use of insulin (HCC) MICROALBUMIN / CREATININE URINE NOTQCIliekws84/12/2025 2:06 PM EDT Type 2 diabetes mellitus with other specified complication, without long-term current use of insulin (HCC) from Last 3 Months or Most Recently Relevant to Health Maintenance Results * (ABNORMAL) Iron + transferrin + TIBC (05/17/2025 9:58 AM EDT)ComponentValueRef RangeTest MethodAnalysis TimePerformed AtPathologist SignatureIRON, OHZFB1681 - 180 mcg/dLQUESTIRON BINDING QMFZZUSJ224469 - 425 mcg/dL (calc)QUEST% VFMYIYGLLK82(L)20 - 48 % (calc)CAFXPRNGBHOHW24703 - 380 ng/mLQUESTSpecimen (Source)Anatomical Location / LateralityCollection Method / VolumeCollection TimeReceived PliyKozod56/15/2025 9:58 AM EDT05/17/2025 9:59 AM EDT Narrative Resulting Agency Comment Performing Organization Information ?Site ID: QPT ?Name: [facility] ?Address: [address] [place] [phone] ?Director: Philip Simpson MD Authorizing ProviderResult TypeResult StatusKavya Mesa [facility] BLOOD ORDERABLESFinal ResultPerforming OrganizationAddressCity/State/ZIP CodePhone Number QUEST * (ABNORMAL) CBC (05/17/2025 9:58 AM EDT)ComponentValueRef RangeTest Method Analysis TimePerformed AtPathologist SignatureWHITE BLOOD CELL COUNT4.53.8 - 10.8 Thousand/uLQUESTRED BLOOD CELL COUNT4.734.20 - 5.80 Million/uLQUEST BOTVFMNEPG04.013.2 - 17.1 g/qEQJYVWCBEXTTKMGZ87.038.5 - 50.0 %AYSCVZXX653.6(H) 80.0 - 100.0 gZJMDICREM86.8(H)27.0 - 33.0 anOPJDIZMUP65.732.0 - 36.0 g/dLQUEST Comment: For adults, a slight decrease in the calculated MCHC value (in the range of 30 to 32 g/dL) is most likely not clinically significant; however, it should be interpreted with caution in correlation with other red cell parameters and the patient's clinical condition. RDW13.411.0 - 15.0 %QUESTPLATELET WYTIM204(L)140 - 400 Thousand/uPLGJFFUDK26.2 7.5 - 12.5 fLQUESTSpecimen (Source)Anatomical Location / LateralityCollection Method / VolumeCollection TimeReceived TimeBloodVenous blood specimen / Unknown 05/17/2025 9:58 AM EDT05/17/2025 9:59 AM EDT Narrative Resulting Agency Comment Performing Organization Information ?Site ID: QPT ?Name: [facility] ?Address: [address] [place] [address], [address] [place] [phone] ?Director: Philip Simpson MD Authorizing ProviderResult TypeResult StatusKavya Mesa PALAB BLOOD ORDERABLESFinal ResultPerforming OrganizationAddressCity/State/ZIP CodePhone Number QUEST * (ABNORMAL) POCT Glycated hemoglobin, total (05/17/2025 9:42 AM EDT)Component ValueRef RangeTest MethodAnalysis TimePerformed AtPathologist Signature Hemoglobin A1C6.0Specimen (Source)Anatomical Location / LateralityCollection Method / VolumeCollection TimeReceived XyveFjmpn18/15/2025 9:42 AM EDT Narrative Authorizing ProviderResult TypeResult StatusKavya Mesa PAPOINT OF CARE TEST ENTER/EDIT ORDERABLESFinal Result * Microalbumin / creatinine, urine ratio (02/11/2025 2:06 PM EDT)ComponentValue Ref RangeTest MethodAnalysis TimePerformed AtPathologist SignatureCREATININE, RANDOM HRRMU84775 - 320 mg/dLQUESTALBUMIN, URINE1.2See Note: mg/dLQUEST Comment: [...] specimen obtained by clean catch procedure / Itbshno5402/11/2025 2:06 PM EDT02/11/2025 2:07 PM EDT Narrative Resulting Agency Comment Performing Organization Information ?Site ID: QPT ?Name: [facility] ?Address: [address] [place] [address], [address] [place] [phone] ?Director: Philip Simpson MD Authorizing ProviderResult TypeResult StatusKavya Mesa PALAB URINE ORDERABLESFinal ResultPerforming OrganizationAddressCity/State/ZIP CodePhone Number QUEST from Last 3 Months or Most Recently Relevant to Health Maintenance Insurance Care Teams Team MemberRelationshipSpecialtyStart DateEnd Date Marty Mason MD [address] [facility] [address] [place] [address] PCP - GeneralInternal Medicine01/14/23
--- OUTSIDE RECORDS SUMMARY | 2025-07-08 08:24 | XMS_ITS | Encounter Summary ---
Author Organization [facility] Address [address] [place] [address] Care Team Providers Care Student Success Coach Name Role Phone Marty Mason MD Primary Care Provider [phone] Encounter Details DateTypeDepartmentCare Team (Latest Contact Info)Rzdxbpugcfd37/27/2025Telephone [facility] [address] [place] [address] Kirsten Lance LPN [address] [place], [place] [id number] Social History Tobacco UseTypesPacks/DayYears UsedDateSmoking Tobacco: FormerCigarettesQuit: 09/02/2015Smokeless Tobacco: Never Comments:Last smoked : > 5-1 0 years Alcohol UseStandard Drinks/WeekCommentsYes2 (1 standard drink = 0.6 oz pure alcohol)Caffeine intake : teaPHQ-2AnswerDate RecordedPatient Health Questionnaire-2 Ehiji335Sex and Gender InformationValueDate RecordedSex Assigned at BirthNot on fileLegal QywMzfn4211/14/2022 7:05 PM EDTGender Identity Not on fileSexual [...] MemberRelationshipSpecialtyStart DateEnd Date Marty Mason MD 112 [facility] 110 [place] [address] PCP - GeneralInternal Medicine01/14/23documented as of this encounter
--- OUTSIDE RECORDS SUMMARY | 2025-07-08 08:24 | XMS_ITS | Clinical Summary ---
Author Organization [facility] Address [address] [place] [address], [address] [place] [address] Care Team Providers Care Heart Doctor Name Role Phone Marty Mason MD Primary Care Provider [phone] Allergies No known active allergies Medications No known medications Family History RelationNameStatusCommentsFatherAliveMotherAlive Social History Tobacco UseTypesPacks/DayYears UsedDateSmoking Tobacco: FormerCigarettes0.310 Smokeless Tobacco: Never Tobacco Cessation:Counseling Given: Yes Alcohol UseStandard Drinks/WeekCommentsNever0 (1 standard drink = 0.6 oz pure alcohol)AUDIT-CAnswerDate RecordedFrequency of Alcohol ConsumptionNever 02/20/2019Average Number of DrinksNot on file02/20/2019Frequency of Binge DrinkingNot on file02/20/2019Sex and Gender InformationValueDate RecordedSex Assigned at BirthNot on fileLegal VhtSbhj4211/17/2018 1:58 PM EDTGender Identity Not on fileSexual OrientationNot on file Last Filed Vital Signs Vital SignReadingTime TakenCommentsBlood Mioifbdi612/7906 8:18 AM EDT Eohvg9091 8:18 AM EDTTemperature--Respiratory Rate--Oxygen Saturation-- Inhaled Oxygen Concentration--Bkjkws960.7 kg (264 lb)02/20/2019 8:18 AM EDT Waucpw824.3 cm (5' 11 )02/20/2019 8:18 AM EDTBody Mass Index36.8206 8:18 AM EDT Plan of Treatment [place] [address] Care Teams Team MemberRelationshipSpecialtyStart DateEnd Date Marty Mason MD [address] [facility] [address] [place] [address] PCP - GeneralInternal Medicine02/20/19
--- OUTSIDE RECORDS SUMMARY | 2025-07-08 08:24 | XMS_ITS | Encounter Summary ---
Author Organization [facility] Address [address] [facility] [place] [address] Care Team Providers Care Gis Scientist Name Role Phone Marty Mason MD Primary Care Provider [phone] Encounter Details DateTypeDepartmentCare Team (Latest Contact Info)Ryynvriaijh50/03/2025amboo flowsheet [facility] [address] [place] [address] Kavya Mesa PA [address] [place] [address] Social History Tobacco UseTypesPacks/DayYears UsedDateSmoking Tobacco: FormerCigarettesQuit: 09/02/2015Smokeless Tobacco: Never Comments:Last smoked : > 5-1 0 years Alcohol UseStandard Drinks/WeekCommentsYes2 (1 standard drink = 0.6 oz pure alcohol)Caffeine intake : teaPHQ-2AnswerDate RecordedPatient Health Questionnaire-2 Mcvri11609/04/2024Sex and Gender InformationValueDate RecordedSex Assigned at BirthNot on fileLegal KkxDztn7611/14/2022 7:05 PM EDTGender Identity Not on fileSexual OrientationNot on filedocumented as of this encounter Plan of Treatment Not on file documented as of this encounter Visit Diagnoses Not on filedocumented in this encounter Care Teams Team MemberRelationshipSpecialtyStart DateEnd Date Marty Mason MD [address] [place] [address] PCP - GeneralInternal Medicine01/14/23documented as of this encounter
--- NOTE | 2025-07-08 08:43 | ECG_ITS ---
[facility] Test Date: 2025-07-08 Pat Name: CARIN SO Department: Room: - Gender: Male Car Hostler: : 1980 Requested By: [id number] Order Number: [id number] Reading MD: FAVIAN WASSERMAN Measurements Intervals Mayo Rate: 67 P: 19 CO: 192 QRS: 53 QRSD: 108 T: -5 QT: 412 QTc: 428 Interpretive Statements 1100 Sinus rhythm 1108 Marked sinus arrhythmia 4068 Nonspecific Twave abnormality 9130 borderline ECG No previous ECG available for comparison Electronically Signed On 07-08-2025 17:00:29 EST by FAVIAN WASSERMAN
--- NOTE | 2025-07-08 08:45 | ED.ABDPAIN1 ---
HPI - Abdominal Pain General Chief Complaint: Back Pain/Injury Stated Complaint: LOWER BACK PAIN Time Seen by Provider: 07/08/25 08:29 Source: patient Mode of arrival: walk-in History of Present Illness HPI narrative: The patient is a 44-year-old male presenting to the ER for the third time after he was evaluated in the ER already on June 28 as well as July 01 for the same reason, the patient has been complaining of periumbilical abdominal pain going to his back, the pain according to the patient is intractable and fixed there is no position that would help the pain he is restless, mentioned that he have nausea no vomiting, but no appetite as well, the patient mentioned having small bowel movement today denying any other complaints He presented after he was in the ER to his primary care he was evaluated with Percocet which he is taking and is not helping his pain The patient given the pain 10 out of 10 Related Data Home Medications ?Medication ?Instructions ?Recorded ?Confirmed amoxicillin 875 mg-potassium 1 tab PO Q12H 07/08/25 07/08/25 clavulanate 125 mg tablet hydrocodone 7.5 mg-acetaminophen 1 tab PO Q6H PRN pain 07/08/25 07/08/25 325 mg tablet semaglutide 0.25 mg or 0.5 mg (2 0.5 mg subcut .weekly 07/08/25 07/08/25 mg/3 mL) subcutaneous pen injector (Ozempic) Previous Rx's ?Medication ?Instructions ?Recorded omeprazole 20 mg capsule,delayed 20 mg PO DAILY 4 weeks #28 caps 06/28/25 release dicyclomine 20 mg tablet 20 mg PO BID PRN abdominal pain 07/01/25 #30 tabs hyoscyamine sulfate 0.125 mg 0.125 mg PO Q6H PRN abdominal pain 07/01/25 sublingual tablet (Levsin/SL) #20 tabs Allergies Allergy/AdvReac Type Severity Reaction Status Date / Time No Known Drug Allergies Allergy Verified 07/08/25 08:22 Review of Systems ROS Status of ROS 10 or more systems reviewed and unremarkable except as noted in history and below [facility] Social History (Updated 07/08/25 @ 12:24 by Umm Barreto RN) Within the past year, how often did you have a drink containing alcohol: 2-4 times a month Smoking status: Never smoker Little interest or pleasure in doing things: not at all Feeling down, depressed, or hopeless: not at all Exam Narrative Exam Narrative: Nurses notes and vital signs reviewed and patient is not hypoxic. General: Well-appearing and in distress due to pain Skin: Warm, dry, no pallor noted. No rash. Head: Normocephalic, atraumatic. Neck: Supple, non-tender. Cardiovascular: Regular Rate and Rhythm without murmur, gallop or rub. Respiratory: No accessory muscle use or respiratory distress. Lungs are clear to auscultation, no wheezing, rales or rhonchi Chest Wall: no tenderness Back: No midline thoracic or lumbar vertebral tenderness. No CVA tenderness Musculoskeletal: normal ROM, no calf or popliteal tenderness, no lower extremity edema/swelling GI: Abdomen is soft, distended due to obesity and I could not induce the pain with palpation Neurological: A&O x4. No cranial nerve dysfunction observed. No truncal ataxia. Moves all extremities. Sensation intact. Psychiatric: Cooperative and interactive. Normal mood and affect. Constitutional Vital Signs, click to edit/add: Last Vital Signs Temp 97.9 F 07/08/25 08:25 Pulse 64 07/08/25 12:40 Resp 18 07/08/25 12:40 BP 124/71 07/08/25 14:40 Pulse Ox 96 07/08/25 14:39 O2 Del Method Room Air 07/08/25 08:25 Course Vital Signs Vital signs: Vital Signs Temperature 97.9 F 07/08/25 08:25 Pulse Rate 115 H 07/08/25 08:25 Respiratory Rate 22 H 07/08/25 08:25 Blood Pressure 143/85 H 07/08/25 08:25 Pulse Oximetry 95 07/08/25 08:25 Oxygen Delivery Method Room Air 07/08/25 08:25 Temperature 97.9 F 07/08/25 08:25 Pulse Rate 64 07/08/25 12:40 Respiratory Rate 18 07/08/25 12:40 Blood Pressure 124/71 07/08/25 14:40 Pulse Oximetry 96 07/08/25 14:39 Oxygen Delivery Method Room Air 07/08/25 08:25 MDM - Abdominal Pain MDM Narrative Medical decision making narrative: The patient EKG showing sinus rhythm with a heart rate of 27 there are nonspecific changes to the EKG The patient CBC and chemistry as well as the rest of the blood workup was positive only for the lactic acid being elevated above 3 in addition to the D-dimer was elevated The patient pain was controlled in the ER with Toradol Bentyl and Pepcid The patient was in a lot of pain upon arrival it was 10 out of 10 it was noted that he had multiple presentation with multiple workup done including a CAT scan and CAT scan with contrast and the CAT scan of contrast at that time there was a concern for Valente pancreatic stranding which also extend to the duodenal sweep and the superior mesenteric artery That why the patient had a CT angio done of the abdomen that showed that the patient have again a splenomegaly with possibly distal paraesophageal varices in addition to decreased attenuation of the hepatic parenchyma suggesting fatty infiltration and the spleen most prominent at 16 cm with also the patient having thickening of the wall of the portal vein and there is a central hypodensity and partial portal vein thrombosis cannot be excluded I need that doing an ultrasound as well for the abdomen and it was not conclusive due to the patient body habitus and his high BMI I did discuss the case with Dr. Myers and gastroenterology and she agreed that the patient have ongoing pathology and right now even with possible diagnosis of portal vein thrombosis with suspicion of possible esophageal varices on the CAT scan angio she mentioned that she would not anticoagulate him before she do more workup She mentioned that the patient need to be transferred to a tertiary center for further evaluation I do spoke with the patient and explained the above and he agreed that his pain has been progressively getting worse and he have not been having any answers I discussed the case with [facility] Jes[facility] and the patient was accepted to be admitted under Dr. Wynn Lab Data Labs: Lab Results 07/08/25 07/08/25 Range/Units 08:46 11:10 WBC 7.1 (4.0-11.0) 10^3/uL RBC 4.84 (4.70-6.10) 10^6/uL Hgb 16.0 (14.0-18.0) g/dL Hct 45.3 (42.0-54.0) % MCV 93.6 (80.0-94.0) fL MCH 33.1 (25.9-34.0) pg MCHC 35.3 H (29.9-35.2) g/dL RDW 12.1 (11.0-15.0) % Plt Count 189 (150-450) 10^3/uL MPV 10.1 (9.5-13.5) fL Neut % (Auto) 49.8 (43.0-75.0) % Lymph % (Auto) 33.4 (20.5-60.0) % Sullivan % (Auto) 14.4 H (1.7-12.0) % Eos % (Auto) 1.5 (0.9-7.0) % Baso % (Auto) 0.6 (0.2-2.0) % Neut # (Auto) 3.6 (1.4-6.5) 10^3/uL Lymph # (Auto) 2.4 (1.2-3.8) 10^3/uL Sullivan # (Auto) 1.0 H (0.3-0.8) 10^3/uL Eos # (Auto) 0.1 (0.0-0.7) 10^3/uL Baso # (Auto) 0.0 (0.0-0.1) 10^3/uL Abs Immat Gran (auto) 0.02 (0.00-0.03) 10^3/uL Imm/Tot Granulo (auto) 0.3 (0.0-0.5) % D-Dimer 3.54 H* (<=0.59) mg/L FEU Sodium 139 (136-145) mmol/L Potassium 3.4 L (3.5-5.1) mmol/L Chloride 102 (98-107) mmol/L Carbon Dioxide 23.0 (21.0-32.0) mmol/L Anion Gap 17.4 BUN 7.0 (7.0-18.0) mg/dL Creatinine 0.90 (0.70-1.30) mg/dL Est GFR ( Amer) >60 (>=60 mL/min/1.73m^2) Est GFR (Non-Af Amer) >60 (>=60 mL/min/1.73m^2) BUN/Creatinine Ratio 7.8 Glucose 149 H (74-106) mg/dL Lactate 4.4 H* 1.7 (0.4-2.0) mmol/L Calcium 9.2 (8.5-10.1) mg/dL Total Bilirubin 0.7 (0.2-1.0) mg/dL AST 33 (15-37) U/L ALT 32 (16-63) U/L Alkaline Phosphatase 115 (46-116) U/L Troponin I High Sens 6.3 (4.0-76.1) pg/mL Total Protein 8.3 H (6.4-8.2) g/dL Albumin 3.4 (3.4-5.0) g/dL Globulin 4.9 g/dL Albumin/Globulin Ratio 0.7 Lipase 30.0 (16.0-77.0) U/L Discharge Plan Discharge Chief Complaint: Back Pain/Injury Clinical Impression: Portal vein thrombosis, Intractable abdominal pain, Acidosis, lactic Patient Disposition: [facility] Time of Disposition Decision: 15:13 Condition: Good Discharge Date/Time: 07/08/25 16:22
[2025-07-08] MEDS: 0.9 % SODIUM CHLORIDE 1,000 ML 1000 ML IV (08:48)
[2025-07-08 08:53] LABS: Hematocrit 45.3 % (42.0-54.0); Hemoglobin 16.0 g/dL (14.0-18.0); Immature Granulocytes Abs Auto 0.02 10^3/uL (0.00-0.03); Immature Granulocytes Pct Auto 0.3 % (0.0-0.5); Lymphocytes Absolute Auto 2.4 10^3/uL (1.2-3.8); Mean Corpuscular HGB Conc 35.3 g/dL (29.9-35.2); Mean Corpuscular Hemoglobin 33.1 pg (25.9-34.0); Mean Corpuscular Volume 93.6 fL (80.0-94.0); Platelet Count 189 10^3/uL (150-450); Red Blood Count 4.84 10^6/uL (4.70-6.10); White Blood Count 7.1 10^3/uL (4.0-11.0)
[2025-07-08] MEDS: KETOROLAC TROMETHAMINE 30 MG/ML VIAL IVP ×2 (08:58→15:30)
[2025-07-08] MEDS: FAMOTIDINE/PF 20 MG/2 ML VIAL IV (08:58)
[2025-07-08] MEDS: DICYCLOMINE HCL 20 MG/2 ML VIAL IM (09:05)
[2025-07-08 09:11] LABS: Alanine Aminotransferase 32 U/L (16-63); Albumin Globulin Ratio 0.7; Albumin Level 3.4 g/dL (3.4-5.0); Alkaline Phosphatase 115 U/L (46-116); Anion Gap 17.4; Aspartate Amino Transferase 33 U/L (15-37); Blood Urea Nitrogen 7.0 mg/dL (7.0-18.0); Calcium 9.2 mg/dL (8.5-10.1); Carbon Dioxide 23.0 mmol/L (21.0-32.0); Chloride 102 mmol/L (98-107); Estimated GFR (African America >60 (>=60 mL/min/1.73m^2); Estimated GFR (Non-African Ame >60 (>=60 mL/min/1.73m^2); Globulin 4.9 g/dL; Glucose 149 mg/dL (74-106); Potassium 3.4 mmol/L (3.5-5.1); Sodium 139 mmol/L (136-145); Total Protein 8.3 g/dL (6.4-8.2)
[2025-07-08 09:16] LABS: Lipase 30.0 U/L (16.0-77.0)
[2025-07-08 09:25] LABS: Lactate/Lactic Acid 4.4 mmol/L (0.4-2.0)
--- NOTE | 2025-07-08 09:30 | CT_ITS ---
The [address] [address] Patient Name: CARIN SO MRN: [id number] date: 1980 Sex: M Assigned Patient Location: ER Current Patient Location: ER Accession/Order Number: [id number] Exam Date: 07/08/2025 10:00 Report Date: 07/08/2025 10:50 At the request of: ANURAG ANDERSEN MD Procedure: CT angio abdomen pelvis CTA OF THE ABDOMEN PELVIS WITH CONTRAST CLINICAL DATA: Intractable abdominal pain. Elevated d-dimer and lactate. COMPARISON: 07/01/2025 Spiral images were obtained through the abdomen and pelvis following 100 mL of Omnipaque 350. Sagittal and coronal MIP as well as 3-D volume rendered reconstructions of the aorta and its branches were reviewed. This CT exam was performed using one or more following dose reduction techniques: Automated exposure control, adjustment of the mA and/or kV according to patient size, or use of iterative reconstruction technique. Limited cuts through the lung bases show no contributory pulmonary findings. There is a tiny hiatal hernia. There are suspected distal paraesophageal varices. The top of the dome of liver is not included in its entirety. There is decreased attenuation of the hepatic parenchyma suggesting fatty infiltration. No calcified gallstones are identified. The spleen is prominent measuring 16 cm in craniocaudal dimension. The pancreas and adrenal glands show no acute abnormalities. There are symmetric renal nephrograms, without hydronephrosis. There is no atherosclerotic disease, aortic aneurysm or dissection. There is no periaortic fluid. There is continued hazy inflammation within the mesentery as well as small lymph nodes. There could be some thickening of the wall the portal vein. There is central hypodensity and partial portal vein thrombosis is not excluded. No developing ascites is seen. Small bowel loops are normal caliber. There is air and moderate fluid within the stomach. There is stool along the colon. Postoperative and degenerative changes are seen at the spine. There is lumbosacral spondylolisthesis due to L5 spondylolysis. Images through the pelvis show no appendiceal inflammation. There is no dilated small bowel. There is stool at the distal colon. No diverticular disease is noted. There is a tiny umbilical hernia containing fat. The urinary bladder is not well-distended and the wall still appears thickened. The prostate is within normal limits for size. There are benign inguinal lymph nodes. No ascites is seen. CT/CT angio abdomen pelvis IMPRESSION: SUSPECTED FATTY LIVER. QUESTION OF POSSIBLE CIRRHOSIS WITH PORTAL HYPERTENSION GIVEN THE SPLENOMEGALY AND VARICES. CORRELATION IS RECOMMENDED. PERSISTENT MESENTERIC INFLAMMATORY CHANGE AND SMALL LYMPH NODES. CANNOT EXCLUDE PARTIAL PORTAL VEIN THROMBOSIS. ULTRASOUND FOLLOW-UP COULD BE CONSIDERED. NO BOWEL OR URINARY TRACT OBSTRUCTION. APPARENT URINARY BLADDER WALL THICKENING. THIS MAY RELATE TO UNDERDISTENTION HOWEVER CORRELATION IS SUGGESTED TO EXCLUDE CYSTITIS. Impression dictated by: Kavya Rodas M.D. 07/08/2025 10:50 AM Dictation Location: [place] [address] Electronically authenticated by: [id number] Y Date: 07/08/2025 10:50
--- NOTE | 2025-07-08 11:03 | US_ITS ---
The [address] [address] Patient Name: CARIN SO MRN: [id number] date: 1980 Sex: M Assigned Patient Location: ER Current Patient Location: ER Accession/Order Number: [id number] Exam Date: 07/08/2025 11:04 Report Date: 07/08/2025 11:59 At the request of: ANURAG ANDERSEN MD Procedure: US right upper quadrant LIMITED RIGHT UPPER QUADRANT ABDOMINAL ULTRASOUND CLINICAL HISTORY: Question of partial portal vein thrombosis on CT . Epigastric pain. COMPARISON: CT 07/08/2025 The gallbladder is physiologically distended without shadowing calculi, wall thickening or pericholecystic fluid. No intra- or extrahepatic biliary dilatation is evident. The common duct measures 4 - 5 mm. The liver parenchyma is echogenic suggesting fatty infiltration. No focal intrahepatic masses are seen. The visualized portions of the portal vein are patent and show appropriate hepatopedal flow. Evaluation is, however limited due to body habitus, bowel gas and poor acoustic windows. The pancreas is not well visualized. Evaluation of the right kidney reveals no hydronephrosis or fluid within Goodrich's pouch. US/US right upper quadrant IMPRESSION: FATTY LIVER. NO GALLBLADDER PATHOLOGY. NO OBVIOUS PORTAL VEIN THROMBOSIS, HOWEVER EVALUATION IS LIMITED BY POOR ACOUSTIC WINDOWS. Impression dictated by: Kavya Rodas M.D. 07/08/2025 11:59 AM Dictation Location: [place] [address] Electronically authenticated by: [id number] Y Date: 07/08/2025 11:59
[2025-07-08 11:39] LABS: Lactate/Lactic Acid 1.7 mmol/L (0.4-2.0)
== END 2025-07-08 16:22 | disposition short-term general hospital (02) ==
PROVIDERS: Emergency Provider Emergency Medicine; PCP Internal Medicine
DX: R10.9 Unspecified abdominal pain (principal); R16.1 Splenomegaly, not elsewhere classified; E87.20 Acidosis, unspecified
CPT/HCPCS: 36415; 74174; 76705; 80053; 83605; 83690; 84484; 85025; 85378; 87070; 87075; 93005; 96372; 96374; 96375; 96376; 99285; J0500; J1885; J3490; Q9967